=== PATIENT | male | born 1935 | race Caucasian/White ===

== ENCOUNTER 2017-07-18 10:07 | Outpatient (CLI) | payer MEDICARE ==
--- OUTSIDE RECORDS SUMMARY | 2017-07-18 10:09 | XMS | Clinical Summary ---
:1935 Author Organization [facility] Address [address] [place] [address] Phone Care Team Providers Name Role Phone , Primary Care Provider Unavailable Allergies Not on File Current Medications Not on file Active Problems Not on file Social History Tobacco Use Types Packs/Day Years Used Date Never Assessed Sex Assigned at Date Recorded Not on file Last Filed Vital Signs Not on file Plan of Treatment Not on file Results Not on filefrom Last 3 Months
--- NOTE | 2017-07-18 11:00 | ULT ---
RENAL SONOGRMA: HISTORY: Urinary retention. Prostatic hypertrophy. FINDINGS: The right kidney is 10.7 cm in length and the left 11.5 cm. There is o evidence of mass, stone, or hydronephrosis. The 5.4 cm cyst projecting posteriorly from the superior pole left kidney correlate s with abnormality on prior CT scan. Urinary bladder is unremarkable. IMPRESSION: 1. No evidence of urinary tract obstruction. 2. Left renal cyst, stable. POS: [facility]
[2017-07-18 11:20] LABS: Anion Gap 16 mmol/L (10-20); BUN (Urea Nitrogen) 21 mg/dL (8.4-25.7); Calc. Creatinine Clearance 0 mL/min (70-130); Carbon Dioxide 25 mmol/L (23-31); Chloride 102 mmol/L (98-107); Estimated GFR-MDRD 77
[2017-07-18 11:25] LABS: Bilirubin Negative (Negative); Blood, Urine Negative (Negative); Glucose, Urine (Dipstick) Negative (Negative); Ketone, Urine Negative (Negative); Nitrite Negative (Negative); Protein, Urine (Dipstick) Negative (Neg-Trace); Urobilinogen 0.2 mg/dL (0.2-1.0)
[2017-07-18 11:37] LABS: Bacteria/HPF None Seen HPF (None Seen); Hyaline Casts/LPF 0-3 HYALINE CAST LPF (0-3 Hyaline); RBC/HPF None Seen HPF (0-3); Squamous Epithelial 0-3 HPF (0-3); WBC/HPF 0-3 HPF (0-3)
== END 2017-07-18 10:08 | disposition home or self-care (01) ==
LOC: ULT 10:07
PROVIDERS: ATTEND Urology
DX: N40.1 Benign prostatic hyperplasia with lower urinary tract symptoms (principal); R33.9 Retention of urine, unspecified
CPT/HCPCS: 36415; 76770; 80048; 81001; 87086

== ENCOUNTER 2018-01-28 08:41 | Outpatient (CLI) | payer MEDICARE | END 2018-01-28 08:42 | disposition home or self-care (01) | LOC: BICULT 08:41 | PROVIDERS: ATTEND Urology | DX: N40.1 Benign prostatic hyperplasia with lower urinary tract symptoms (principal); R33.9 Retention of urine, unspecified | CPT/HCPCS: 74018; 76856 ==

== ENCOUNTER 2018-02-14 13:41 | Outpatient (CLI) | payer MEDICARE | END 2018-02-14 13:42 | disposition home or self-care (01) | LOC: BICULT 13:41 | PROVIDERS: ATTEND Urology | DX: N40.1 Benign prostatic hyperplasia with lower urinary tract symptoms (principal); R33.9 Retention of urine, unspecified; R97.20 Elevated prostate specific antigen [PSA]; Z80.42 Family history of malignant neoplasm of prostate; N28.1 Cyst of kidney, acquired | CPT/HCPCS: 76770 ==

== ENCOUNTER 2018-08-11 08:09 | Outpatient (CLI) | payer MEDICARE ==
[2018-08-11] MEDS ORDERED: ISOVUE-370 76%-LOCM 1 ML ONE (12:00)
--- NOTE | 2018-08-11 12:07 | CT ---
CT ABDOMEN AND PELVIS WITH AND WITHOUT IV CONTRAST: Date: 08/11/18 HISTORY: 82-year-old male with microhematuria. COMPARISON: 03/08/17. FINDINGS: Chronic changes in the lung bases again seen. No calcified gallstones are identified. The liver, sple en, pancreas, and adrenal glands are normal. No free air, free fluid, or lymphadenopathy seen in the abdomen or pelvis. No calculi are noted in the kidneys, ureters, or the urinary bladder. The 7.0 mm exophytic hyperdense lesion arising from the anterior cortex of the left kidney, likely hemorrhagic cyst, is stable. Cyst s in the left kidney are also stable. No calculi are seen in the kidneys, ureters, or the urinary gold dder. No hydroureteronephrosis noted on either side. No enhancing liver masses are noted. There is no rmal contrast excretion into the ureters and the urinary bladder. The prostate is mildly enlarged. A small hiatal hernia noted. There is sigmoid diverticulosis. Vascular calcifications are present wit hout evidence of aneurysmal dilatation of the abdominal aorta. There are degenerative changes and sco liosis of the spine. Appendix is normal. IMPRESSION: 1. No CT evidence of urinary tract calculi or obstruction. 2. Renal cysts. 3. Small hiatal hernia. 4. Sigmoid diverticulosis. POS: [facility]
== END 2018-08-11 08:10 | disposition home or self-care (01) ==
LOC: BICCT 08:09
PROVIDERS: ATTEND Urology
DX: R31.29 Other microscopic hematuria (principal); N28.1 Cyst of kidney, acquired; K44.9 Diaphragmatic hernia without obstruction or gangrene; K57.30 Diverticulosis of large intestine without perforation or abscess without bleeding
CPT/HCPCS: 74178; 82565

== ENCOUNTER 2018-10-16 08:52 | Inpatient (IN) | payer MEDICARE ==
[2018-10-16 09:31] LABS: #Basophils 0.1 thou/uL (0.0-0.2); #Eosinphils 0.3 thou/uL (0.0-0.7); #Lymphocytes 1.7 thou/uL (1.20-3.40); #Monocytes 1.2 thou/uL (0.11-0.59); #Neutrophils 5.3 thou/uL (1.40-6.50); %Basophils 0.7 % (0.0-1.0); %Eosinophils 3.5 % (0.0-10.0); %Lymphocytes 19.5 % (21.0-51.0); %Monocytes 13.6 % (0.0-10.0); %Neutrophils 62.8 % (42.0-75.0); Hemoglobin 11.5 g/dL (14.0-18.0); Mean Corpuscular HGB CONC 33.1 g/dL (32.0-36.0); Mean Corpuscular Hemoglobin 32.2 pg (27.0-31.0); Mean Corpuscular Volume 97.3 fL (78.0-98.0); Mean Platelet Volume 8.7 fL (7.4-10.4); Platelet Count 240 thou/uL (130-400); RBC Distribution Width 19.6 % (11.5-14.5); Red Blood Cell (RBC) Count 3.56 mill/uL (4.70-6.10); White Blood Cell (WBC) Count 8.5 thou/uL (4.8-10.8)
[2018-10-16 09:55] LABS: ALT (SGPT) 24 U/L (8-55); AST (SGOT) 31 U/L (5-34); Albumin 3.8 g/dL (3.4-4.8); Alkaline Phosphatase 49 U/L (40-150); Anion Gap 14 mmol/L (10-20); BUN (Urea Nitrogen) 18 mg/dL (8.4-25.7); Bilirubin, Total 0.7 mg/dL (0.2-1.2); Calc. Creatinine Clearance 0 mL/min (70-130); Calcium 9.5 mg/dL (7.8-10.44); Carbon Dioxide 25 mmol/L (23-31); Chloride 101 mmol/L (98-107); Estimated GFR-MDRD 83; Globulin 3.7 g/dL (2.4-3.5); Glucose 113 mg/dL (83-110); Potassium 4.2 mmol/L (3.5-5.1); Protein, Total 7.5 g/dL (5.8-8.1); Sodium 136 mmol/L (136-145)
--- NOTE | 2018-10-16 10:01 | RAD ---
TWO VIEW CHEST: COMPARISON: None available. INDICATION: Cough. FINDINGS: There is interstitial prominence of each lung. Cardiac silhouette is borderline in size and there is prominence of the central pulmonary vasculature. Mild patchy density is seen at the left lateral maryam ng base. There is tortuosity of the thoracic aorta. IMPRESSION: 1. Mild interstitial opacities bilaterally. This could relate to edema versus bronchiolitis. Consi jennifer imaging as necessary. 2. Additional details are as described above. POS: [facility]
--- NOTE | 2018-10-16 11:25 | CT ---
CHEST CT WITHOUT CONTRAST: HISTORY: Cough. Congestion. COMPARISON: None. FINDINGS: Limited evaluation of the mediastinal structures due to lack of IV Contrast. There are scattered non specific, nonenlarged mediastinal lymph nodes. NO masses or hematoma. Heart size is within normal l imits. No significant pericardial fluid. There are coronary artery calcifications. Limited evaluation of the upper solid abdominal viscera due to the lack of IV contrast. Mild atrophy of the pancreas. Trachea and central benthic are patent. Dependent atelectatic changes with areas of scarring noted in both lower lobes. No suspicious masses or consolidation. No pleural effusion o r pneumothorax. Trachea and central bronchi are patent. There are no lytic or blastic lesions in the osseous structures. IMPRESSION: Dependent changes in the lung parenchyma, presumed to be due to atelectasis and scarring. POS: [facility]
[2018-10-16] MEDS ORDERED: Azithromycin 500 MG VIAL ONE (12:12)
[2018-10-16] MEDS ORDERED: Sodium Chloride 0.9% 0 ML ONE (12:12)
[2018-10-16] MEDS ORDERED: methylPREDNISolone Sod Succ/PF 125 MG/2 ML VIAL ONE (12:23)
[2018-10-16] MEDS ORDERED: Acetaminophen 325 MG TAB PO PRN (15:48)
[2018-10-16] MEDS ORDERED: Ondansetron ODT 4 MG TAB SL PRN (15:48)
[2018-10-16] MEDS ORDERED: Ondansetron PF 4 MG/2 ML Vial IVP PRN (15:48)
[2018-10-16 15:57] VITALS: BMI 40.8
[2018-10-16] MEDS: guaiFENesin ER 600 MG TAB PO SCH (20:28)
[2018-10-16] MEDS: predniSONE 20 MG TAB PO SCH (20:28)
[2018-10-16] MEDS ORDERED: Simvastatin 20 MG TAB PO SCH (21:00)
[2018-10-16] MEDS ORDERED: Prevnar 13-Val Conj/PF 0.5 ML SYRINGE IM ONE (21:00)
[2018-10-16] MEDS: Albuterol Sulfate 1.25 MG/3 ML NEB NEB SCH (22:12)
--- NOTE | 2018-10-16 22:13 | HP ---
PRIMARY CARE PHYSICIAN: Colby Leiva MD CHIEF COMPLAINT: Cough and shortness of breath. HISTORY OF PRESENT ILLNESS: This is an 83-year-old gentleman, patient of Dr. Colby Leiva, who is a resident of [facility], presents to the emergency department for worsening cough and shortness of breath. The patient has a history of dementia and memory loss. He states he has had a cough for the past several weeks, which has worsened over the past few days. He presented to the emergency department. He was found to have a severe cough with episodes of hypoxemia down to 87% to 88%, worse with walking around. He denied any fevers or chills; has had some congestion and drainage. He has not had any improvement with [id number] medicines. He denies any loss of consciousness, denies chest pain, and does not use oxygen at home. PAST MEDICAL HISTORY: Hypertension, dementia, benign prostatic hypertrophy, hypertension, gout. MEDICATIONS: Include, 1. Hydrochlorothiazide 12.5 mg daily. 2. Aspirin 81 mg daily. 3. Finasteride 5 mg daily. 4. Tamsulosin 0.8 mg daily. 5. Icaps daily. 6. Fish oil 1200 mg daily. 7. Vitamin D 5000 units daily. 8. Vitamin B12 1000 mcg daily. 9. Namenda 10 mg b.i.d. 10. Paroxetine 20 mg 2 tabs daily. 11. Allopurinol 300 mg daily. 12. Vitamin B6, 100 mg daily. 13. Colace p.r.n. 14. Diazepam 2 mg p.r.n. anxiety. 15. Simvastatin 20 mg daily. 16. Lisinopril 20 mg daily. PAST SURGICAL HISTORY: Hemorrhoidectomy in 1950s, left Achilles tendon repair in 1966, cystoscopy in 2016, transrectal ultrasound in 2017, a repeat cystoscopy in August 2018. FAMILY HISTORY: Mother and father . SOCIAL HISTORY: Remote smoker, cigar several years ago. No drugs. No alcohol. He is retired. Lives alone at [facility] at this time. ALLERGIES: NO KNOWN DRUG ALLERGIES. REVIEW OF SYSTEMS: As per the history of present illness. CONSTITUTIONAL: He denies any recent fevers, chills, or recent illness. HEENT: Denies headache or visual or hearing changes. Has had some congestion and allergy symptoms. CARDIAC: Denies chest pain, shortness of breath, or palpitations. PULMONARY: Positive cough. Positive shortness of breath. Positive hypoxia. No hemoptysis. GI: No nausea, vomiting, abdominal pain, melena, or hematochezia. : History of BPH with evaluations with Dr. Flores recently. NEUROLOGIC: Positive Alzheimer's dementia. No falls. No syncope. PHYSICAL EXAMINATION: VITAL SIGNS: In the emergency department; temperature 99.3 to 99.7, pulse is 74, respirations 20, blood pressure 133/78, and pulse ox is 92% on room air, but would de-sat to 88% with ambulation. HEENT: Mucosa is moist. NECK: Supple. HEART: Regular rate and rhythm. LUNGS: With expiratory rhonchi. No wheeze. No rales. ABDOMEN: Obese, soft, nontender, and nondistended. No hepatosplenomegaly. EXTREMITIES: Trace edema bilaterally. NEUROLOGIC: No weakness. Strength is 5/5 in upper and lower extremities. Sensation is intact bilaterally. LABORATORY DATA: White blood cell count 8500, hemoglobin and hematocrit are 11.5 and 34.6, and platelets are 240. Sodium 136, potassium 4.2, chloride 101, CO2 of 25, BUN and creatinine are 18 and 0.88. Serum glucose of 133, lactic acid of 1.3. Liver enzymes are normal. Troponin I 0.01. BNP of 30.9. Chest x-ray revealed no active disease. Mild interstitial opacities bilaterally consistent with bronchiolitis. Chest CT revealed dependent changes in the lung parenchyma either due to atelectasis or scarring. ASSESSMENT AND PLAN: 1. This is an 83-year-old assisted living resident with Alzheimer's dementia, now with persistent cough and episode of hypoxemia in the emergency department consistent with acute bronchiolitis and bronchitis. I agree with admission. He is a poor historian. We will continue antibiotics and steroid therapy, and neb treatments as needed. Hopefully home soon. 2. Hypertension. We will continue his medications. 3. Alzheimer's dementia with behavioral disturbance. We will continue his oral medications as well. 4. Gastrointestinal protection with proton pump inhibitor. 5. We will start deep venous thrombosis prophylaxis with Lovenox due to his poor ambulation as well. Job ID: [id number]
[2018-10-17] MEDS: Albuterol Sulfate 1.25 MG/3 ML NEB NEB SCH (06:15)
--- NOTE | 2018-10-17 08:10 | RAD ---
CHEST 1 VIEW: Date: 10/17/18 HISTORY: Hypoxia. COMPARISON: 10/16/18. CORRELATION: Chest CT dated 10/16/18. FINDINGS: There is an enlarged cardiaca silhouette. Pulmonary vessels are prominent. Costophrenic angles are cl ear. No masses or consolidation. Chronic changes in the lung bases are noted. No pneumothorax or osse ous abnormalities. IMPRESSION: Pulmonary vascular prominence. POS: [facility]
[2018-10-17] MEDS ORDERED: Tamsulosin HCl 0.4 MG CAP PO SCH (09:00)
[2018-10-17] MEDS ORDERED: PARoxetine 20 MG TAB PO SCH (09:00)
[2018-10-17] MEDS ORDERED: Lisinopril 20 MG TAB PO SCH (09:00)
[2018-10-17] MEDS ORDERED: Finasteride 5 MG TAB PO SCH (09:00)
[2018-10-17] MEDS ORDERED: pyridOXINE 50 MG (B6) TAB PO SCH (09:00)
[2018-10-17] MEDS ORDERED: Allopurinol 300 MG TAB PO SCH (09:00)
[2018-10-17] MEDS ORDERED: Azithromycin 250 MG TAB PO SCH (09:00)
[2018-10-17] MEDS ORDERED: Cyanocobalamin (Vitamin B-12) 1,000 MCG TAB PO SCH (09:00)
[2018-10-17] MEDS: guaiFENesin ER 600 MG TAB PO SCH (09:40)
[2018-10-17] MEDS: predniSONE 20 MG TAB PO SCH (09:41)
--- NOTE | 2018-10-17 14:33 | PRG ---
DATE OF SERVICE: 10/17/2018 PROGRESS NOTE/DISCHARGE SUMMARY The patient was in 23-hour observation. ADMITTING PHYSICIAN: Dr. Colby Leiva. DISCHARGE DIAGNOSES: 1. Bronchitis. 2. Hypoxia. HOSPITAL SUMMARY: The patient is an 83-year-old male, resident of [facility], who was admitted to the ER due to cough, congestion, with decreased oxygenation saturation of about 87%. A chest x-ray was taken, which revealed no evidence of acute disease. He was treated with nebulizations, p.o. steroids as well as p.o. Zithromax. He has been doing well since then. PHYSICAL EXAMINATION: VITAL SIGNS: Room air O2 saturation 95%, blood pressure 120/77, and temperature 97.5. LUNGS: Clear. HEART: Reveals no murmur. IMPRESSION: Bronchitis. PLAN: The patient can be discharged home as noted. He was admitted yesterday and placed on p.o. medications as well as nebulizations. His lungs are clear. He is not having good O2 saturations. He will be discharged home on Zithromax 250 mg p.o. daily as well as Medrol Dosepak to be taken as directed. Continue his home medications. Job ID: [id number]
[2018-10-17 15:24] VITALS: BP 129/79; TEMP 97.7
== END 2018-10-17 14:16 | disposition home or self-care (01) | DRG 202 ==
LOC: ERS 08:52 → ERHOLD 12:20 → T4-B 15:12
PROVIDERS: ADMIT Family Medicine; ATTEND Family Medicine
DX: J20.9 Acute bronchitis, unspecified (principal); F02.81 Dementia in other diseases classified elsewhere, unspecified severity, with behavioral disturbance; R09.02 Hypoxemia; I10 Essential (primary) hypertension; N40.0 Benign prostatic hyperplasia without lower urinary tract symptoms; M10.9 Gout, unspecified; G30.9 Alzheimer's disease, unspecified; Z79.82 Long term (current) use of aspirin; Z79.899 Other long term (current) drug therapy; Z98.890 Other specified postprocedural states; Z87.891 Personal history of nicotine dependence
CPT/HCPCS: 36415; 71045; 71046; 71250; 80053; 83605; 83880; 84484; 85025; 87040; 87804; 90471; 90662; 90670; 93005; 94640; 96365; 96375; G0008; G0009; J0456; J2930; J7050; J7506

== ENCOUNTER 2018-11-07 14:40 | Outpatient (CLI) | payer MEDICARE ==
--- NOTE | 2018-11-07 15:59 | ULT ---
RENAL ULTRASOUND: History: Renal cyst, urinary retention. FINDINGS: Real-time imaging of the right and left kidneys were performed. The right kidney measures 10.8 and th e left kidney 12.4 cm in size. No evidence of obstruction of either kidney. There is a exophytic cyst involving the left kidney. It measures 5.9 cm. The pre-void volume is 207 cc. The patient was unable to void after attempting for 10-15 minutes. IMPRESSION: 1. 5.9 cm upper pole right renal cyst appears stable as compared to previous CT study. 2. Patient was unable to void for this exam. Pre-void volume was 207 cc. POS: [facility]
== END 2018-11-07 14:41 | disposition home or self-care (01) ==
LOC: BICULT 14:40
PROVIDERS: ATTEND Urology
DX: N28.1 Cyst of kidney, acquired (principal); R33.9 Retention of urine, unspecified; N40.1 Benign prostatic hyperplasia with lower urinary tract symptoms; Z87.448 Personal history of other diseases of urinary system
CPT/HCPCS: 76770; 80048; 81003; 81015; 87086; 88121

== ENCOUNTER 2019-08-31 07:29 | Outpatient (CLI) | payer MEDICARE ==
[2019-08-31] MEDS ORDERED: Iopamidol-370 76% 500 ML 1 ML ONE (11:01)
--- NOTE | 2019-08-31 11:18 | CT ---
CT ABDOMEN AND PELVIS WITH AND WITHOUT IV CONTRAST: Date: 08/31/19 HISTORY: Microhematuria. COMPARISON: 08/11/18. FINDINGS: No calculi are seen in the kidneys, ureters, or the urinary bladder. The 7 mm exophytic hyperdense le heidi arising from the anterior cortex of the left kidney, likely a hemorrhagic cyst, is stable. Cysts in the left kidney are also stable. No hydroureteronephrosis is noted on either side. There is miriam l contrast excretion into the ureters and urinary bladder. The prostate is mildly enlarged. Chronic changes in the lung bases are again seen. No calcified gallstones are noted. The liver, splee n, pancreas, and adrenal glands are normal. No free air, free fluid, or lymphadenopathy seen in the a bdomen or pelvis. A small hiatal hernia is again noted. There is colonic diverticulosis without diverticulitis. There a re vascular calcifications without evidence of aneurysmal dilatation of the abdominal aorta. Degenera tive changes and scoliosis of the spine are again seen. A normal appendix is noted. IMPRESSION: 1. Stable exam. 2. No CT evidence of urinary tract calculi or obstruction. 3. Renal cysts. 4. Small hiatal hernia. 5. Colonic diverticulosis. POS: [facility]
== END 2019-08-31 07:30 | disposition home or self-care (01) ==
LOC: BICCT 07:29
PROVIDERS: ATTEND Urology
DX: R31.29 Other microscopic hematuria (principal); N28.1 Cyst of kidney, acquired; K57.30 Diverticulosis of large intestine without perforation or abscess without bleeding; K44.9 Diaphragmatic hernia without obstruction or gangrene
CPT/HCPCS: 74178; Q9967

== ENCOUNTER 2019-10-06 11:13 | Inpatient (IN) | payer MEDICARE ==
--- NOTE | 2019-10-06 11:57 | RAD ---
Chest one view HISTORY: Dyspnea. COMPARISON: 10/17/2018. FINDINGS: Cardiac silhouette is magnified and enlarged. Pulmonary vasculature slightly engorged. Medi astinum is midline with widespread reticulonodular interstitial prominence. No lobar consolidation or evidence of pneumothorax. ekg monitor tech leads overlie the chest. IMPRESSION: Radiographic findings of CHF.
[2019-10-06 12:27] LABS: Anisocytosis MODERATE=16-30 cells (100X) (0-5/hpf); Band 18 % (5-11); Eosinophils 1 % (0-10); Hemoglobin 9.7 g/dL (14.0-18.0); Lymphocytes 15 % (21-51); MDiff Complete? YES; Mean Corpuscular Volume 97.1 fL (78.0-98.0); Mean Platelet Volume 8.3 fL (7.4-10.4); Metamyelocyte 2 % (0-0); Monocytes 9 % (0-10); Neutrophil 54 % (42-75); Platelet Count 245 thou/uL (130-400); Platelet Morphology Comment Appears Adequate; Poikilocytosis SLIGHT = 6-15 cells (100X) (0-5/hpf); RBC Distribution Width 20.5 % (11.5-14.5); Red Blood Cell (RBC) Count 3.02 mill/uL (4.70-6.10); White Blood Cell (WBC) Count 8.3 thou/uL (4.8-10.8)
[2019-10-06 12:32] LABS: ALT (SGPT) 61 U/L (8-55); AST (SGOT) 39 U/L (5-34); Albumin 3.7 g/dL (3.4-4.8); Alkaline Phosphatase 50 U/L (40-110); Anion Gap 8 mmol/L (10-20); BUN (Urea Nitrogen) 17 mg/dL (8.4-25.7); Bilirubin, Total 0.5 mg/dL (0.2-1.2); CK (CPK) 155 U/L (30-200); Calc. Creatinine Clearance 0 mL/min (70-130); Calcium 8.8 mg/dL (7.8-10.44); Carbon Dioxide 32 mmol/L (23-31); Chloride 102 mmol/L (98-107); Estimated GFR-MDRD 74; Globulin 2.9 g/dL (2.4-3.5); Glucose 115 mg/dL (83-110); Potassium 4.1 mmol/L (3.5-5.1); Protein, Total 6.6 g/dL (5.8-8.1); Sodium 138 mmol/L (136-145)
[2019-10-06] MEDS ORDERED: Furosemide 100 MG/10 ML VIAL ONE (12:43)
[2019-10-06] MEDS ORDERED: Acetaminophen 650 MG Suppository PR PRN (13:33)
[2019-10-06] MEDS ORDERED: Acetaminophen 325 MG TAB PO PRN (13:33)
--- NOTE | 2019-10-06 13:41 | PDOC.HHP ---
Hospitalist HPI - History of Present Illness Difficulty breathing at night History of Present Illness: Poor historian, known history of dementia. Mr. Kelley states he was brought here because of difficulty breathing at night. He states he has had worsening short of breath for some time now but is unable to quantify how long it has been worsening. He states he has been generally deconditioning since he moved into assisted living in [place]. He is a poor historian and states he doesnt know what medical problems he has. He does take medications administered by the assisted living staff but does not know what medicines or what they are for. He does not recall being on any water tablets or having issues with heart failure or edema before. Reports a history of smoking cigars in the distant past but denies any history of lung problems including asthma. Has never been on inhalers. He denies requiring oxygen in the past. Denies using nebuliser treatments. States he does not feel any better since given treatment in the ED and continues to feel "a rattling in my chest and wheezy". Has had a productive cough for unknown length of time and states he does not pay attention to what it looks like. Denies any fevers. Has not had any chest pain except occasional discomfort when he coughs. States he does not know if he is short of breath with exertion because he mainly stays in bed or sits in his chair since he moved into assisted living. Does not know if his legs are swollen more than normal or if the leg swelling is new. He has not noted any calf pain or tenderness. ED Course: In the ED he was given 80 mg of IV lasix. Given clinical evidence of fluid overload with bilateral lower extremity edema and crackles on lung auscultation. Labs done initially showed an DEION, following lasix his renal function notably improved. CXR done showed findings consistent with CHF exacerbation. Cardiomegaly with slight engorgement of pulmonary vasculature. Initial Trop negative. BNP 152. Hospitalist ROS - Review of Systems Constitutional: reports: weakness (states he has not been very mobile since moving into assisted living.). denies: fever, chills, sweats, malaise, other Eyes: denies: pain, vision change, conjunctivae inflammation, eyelid inflammation, redness, other ENT: denies: ear pain, ear discharge, nose pain, nose discharge, nose congestion , mouth pain, mouth swelling, throat pain, throat swelling, other Respiratory: reports: cough, shortness of breath, sputum (color unknown). denies: dry, hemoptysis, SOB with excertion, pleuritic pain, wheezing, other Cardiovascular: reports: orthopnea. denies: chest pain, palpitations, paroxysmal noc. dyspnea, edema, light headedness, other Gastrointestinal: denies: nausea, vomiting, abdominal pain, diarrhea, constipation, melena, hematochezia, other Genitourinary: reports: frequency. 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) - Past Surgical History Past Surgical History: reports: Cystoscopy Other Surgical History: Hemmorhoidectomy, achiles tendon repair - Family History Family History: reports: no pertinent history - Social History Smoking Status: Former smoker Alcohol: reports: None Drugs: reports: none Living Situation: Other (Assisted living) - Exam General Appearance: NAD General - other findings: Somewhat short of breath, no acute distress ENT: dry oral mucosa Neck: supple, no lymphadenopathy Heart: normal peripheral pulses Heart - other findings: distant heart sounds Respiratory: rales (at bases) Gastrointestinal: soft, non-tender, no guarding, no rigidity, distended Extremities: 2+ LE edema Skin: no lesions, no rashes Neurological: cranial nerve grossly intact Musculoskeletal: generalized weakness Psychiatric: A&O x 3 Hospitalist Results - Labs Result Diagrams: 10/06/19 11:59 10/06/19 11:58 Lab results: WBC 8.3 thou/uL (4.8-10.8) 10/06/19 11:59 Hgb 9.7 g/dL (14.0-18.0) L 10/06/19 11:59 Hct 29.3 % (42.0-52.0) L 10/06/19 11:59 MCV 97.1 fL (78.0-98.0) 10/06/19 11:59 Plt Count 245 thou/uL (130-400) 10/06/19 11:59 Band Neuts % (Manual) 18 % (5-11) H 10/06/19 11:59 Sodium 138 mmol/L (136-145) 10/06/19 11:58 Potassium 4.1 mmol/L (3.5-5.1) 10/06/19 11:58 Chloride 102 mmol/L (98-107) 10/06/19 11:58 Carbon Dioxide 32 mmol/L (23-31) H 10/06/19 11:58 BUN 17 mg/dL (8.4-25.7) 10/06/19 11:58 Creatinine 0.97 mg/dL (0.7-1.3) 10/06/19 11:58 Glucose 115 mg/dL (83-110) H 10/06/19 11:58 Calcium 8.8 mg/dL (7.8-10.44) 10/06/19 11:58 Total Bilirubin 0.5 mg/dL (0.2-1.2) 10/06/19 11:58 AST 39 U/L (5-34) H 10/06/19 11:58 ALT 61 U/L (8-55) H 10/06/19 11:58 Alkaline Phosphatase 50 U/L (40-110) 10/06/19 11:58 Creatine Kinase 155 U/L (30-200) 10/06/19 11:58 Troponin I 0.021 ng/mL (< 0.028) 10/06/19 11:57 B-Natriuretic Peptide 152.1 pg/mL (0-100) H 10/06/19 11:59 Serum Total Protein 6.6 g/dL (5.8-8.1) 10/06/19 11:58 Albumin 3.7 g/dL (3.4-4.8) 10/06/19 11:58 - EKG Interpretation EKG: Sinus tachycardia, Complete RBBB, TWI leads V1, V2 and V3 - Radiology Interpretation Chest x-ray Status: report reviewed by me Hospitalist H&P A/P - Problem (1) CHF exacerbation Code(s): I50.9 - HEART FAILURE, UNSPECIFIED Status: Acute (2) DEION (acute kidney injury) Code(s): N17.9 - ACUTE KIDNEY FAILURE, UNSPECIFIED Status: Acute (3) Generalized weakness Code(s): R53.1 - WEAKNESS Status: Acute (4) Hypertension Code(s): I10 - ESSENTIAL (PRIMARY) HYPERTENSION Status: Chronic (5) Hypothyroid Code(s): E03.9 - HYPOTHYROIDISM, UNSPECIFIED Status: Chronic (6) Dementia Code(s): F03.90 - UNSPECIFIED DEMENTIA WITHOUT BEHAVIORAL DISTURBANCE Status: Chronic (7) Diabetes mellitus Code(s): E11.9 - TYPE 2 DIABETES MELLITUS WITHOUT COMPLICATIONS Status: Chronic - Plan Plan: Continue diuresis, Lasix 40 mg IV daily Echo. Cardiac rehap inpatient/outpatient Trend troponins. TSH. Monitor renal function. Monitor and continue to replace electrolytes. Continuous cardiac monitoring. Continue Oxygen by NC (desats to 80% off oxygen), O2 sat monitoring. Given the fact he has been sedentary, check d-dimer and venous doppler. Monitor glucose and BP. Resume home medications once verified. Initiated insulin sliding scale. PT/OT consult. Would benefit from rehab screening. CODE STATUS: FULL MPOA: His sister Annette Dan. ADDENDUM: Patient seen by Dr. Claire who advised Lasix 40 mg IV BID [place] SOB most likely due to CHF exacerbation.
--- NOTE | 2019-10-06 14:49 | ULT ---
EXAM: Bilateral lower extremity venous duplex: Deep veins evaluated with color Doppler, spectral analysis, and compression. INDICATIONS: CHF FINDINGS: Deep veins interrogated include common femoral vein, femoral vein, popliteal vein, and post erior tibial vein. These veins show normal compression and blood flow. No evidence of DVT. IMPRESSION: Negative Bilateral venous duplex exam.
[2019-10-06 15:54] LABS: Actual Bicarbonate (HCO3a) 28.7 mEq/L (22-28); Analyzer IN Cardio ER; Base Excess (BEa) 4.1 mEq/L (-2.0 to +3.0); CO2 Tension 43.3 mmHg (35.0-45.0); Calcium, Ionized 1.15 mmol/L (1.12-1.30); Carboxyhemoglobin (COHb) 0.6 gm% (0.0-3.0); Hemoglobin (Hb) 10.9 g/dL (14.0-18.0); O2 Tension (PaO2) 72.2 mmHg (> 60.0); Potassium - ABG Lab 3.71 mmol/L (3.70-5.30); pH, Arterial 7.44 (7.35-7.45)
[2019-10-06 15:55] LABS: Puncture Site RRA
[2019-10-06 15:56] LABS: ALV-art Gradient 73.315 (0-20)
[2019-10-06 16:37] VITALS: BMI 37.5
[2019-10-06] MEDS ORDERED: HumaLOG 300 UNITS/3 ML VIAL SC PRN ×2 (16:46)
[2019-10-06] MEDS ORDERED: Dextrose 5% in Water 1,000 ML IV PRN (16:46)
[2019-10-06] MEDS ORDERED: Dextrose 50% Abboject 50 ML SYRINGE SLOW IVP PRN (16:46)
[2019-10-06] MEDS: Famotidine/PF 20 mg/2ml Vial SLOW IVP SCH (21:58)
[2019-10-07 04:54] LABS: #Eosinphils 0.1 thou/uL (0.0-0.7); #Lymphocytes 1.5 thou/uL (1.20-3.40); #Monocytes 0.8 thou/uL (0.11-0.59); %Basophils 0.6 % (0.0-1.0); %Eosinophils 1.3 % (0.0-10.0); %Lymphocytes 20.3 % (21.0-51.0); %Monocytes 10.9 % (0.0-10.0); Hemoglobin 9.3 g/dL (14.0-18.0); Mean Corpuscular Volume 96.9 fL (78.0-98.0); Mean Platelet Volume 8.4 fL (7.4-10.4); Platelet Count 260 thou/uL (130-400); RBC Distribution Width 20.6 % (11.5-14.5); White Blood Cell (WBC) Count 7.4 thou/uL (4.8-10.8)
[2019-10-07 05:11] LABS: Anion Gap 10 mmol/L (10-20); BUN (Urea Nitrogen) 17 mg/dL (8.4-25.7); Calc. Creatinine Clearance 98 mL/min (70-130); Carbon Dioxide 33 mmol/L (23-31); Chloride 102 mmol/L (98-107); Estimated GFR-MDRD 72; Glucose 106 mg/dL (83-110); Potassium 3.6 mmol/L (3.5-5.1); Sodium 141 mmol/L (136-145)
[2019-10-07] MEDS: Furosemide 40 MG/4 ML VIAL SLOW IVP SCH ×2 (06:46→14:12)
[2019-10-07] MEDS ORDERED: Furosemide 40 MG/4 ML VIAL SLOW IVP SCH (09:00)
--- NOTE | 2019-10-07 10:12 | RAD ---
PORTABLE CHEST: Date: 10/07/19 HISTORY: Shortness of breath. COMPARISON: 10/06/19 exam. FINDINGS: Heart size is enlarged. Pulmonary vessels are engorged but overall improved as compared to the prior exam. Chronic lung changes are also seen. IMPRESSION: Cardiomegaly with improvement to the pulmonary vascular engorgement. POS: [facility]
[2019-10-07] MEDS: Famotidine/PF 20 mg/2ml Vial SLOW IVP SCH ×2 (10:40→21:36)
--- NOTE | 2019-10-07 15:54 | PDOC.HOSPP ---
- Subjective Encounter Date: 10/07/19 Encounter Time: 15:53 Subjective: Patient is still short of breath but feels better. Per , the patient is coughing as much, but he was coughing all night yesterday. He has no fevers or chills Patient has a PET scan coming up this week. - Objective Vital Signs & Weight: Vital Signs (12 hours) Temp Pulse Pulse Pulse Resp BP BP 10/07/19 14:03 70 16 10/07/19 11:20 98.5 F 68 20 10/07/19 11:07 68 70 112/56 L 130/63 10/07/19 08:02 98.4 F 68 20 10/07/19 07:32 90 16 BP Pulse Ox Pulse Ox Pulse Ox Pulse Ox 10/07/19 14:03 10/07/19 11:20 113/55 L 94 L 10/07/19 11:07 93 L 92 L 90 L 10/07/19 08:02 129/57 L 94 L 10/07/19 07:32 Weight Weight 261 lb 12.8 oz I&O: 10/06/19 10/07/19 10/08/19 06:59 06:59 06:59 Intake Total 680 Output Total 1800 Balance -1120 Result Diagrams: 10/07/19 04:29 10/07/19 04:29 Additional Labs: Accuchecks 10/06/19 17:22 POC Glucose 107 Hospitalist ROS - Review of Systems Constitutional: denies: fever, chills - Medication Medications: Active Medications Generic Name Dose Route Start Last Admin Trade Name Freq PRN Reason Stop Dose Admin Albuterol/Ipratropium 3 ml 10/06/19 14:30 10/07/19 14:03 Duoneb NEB 3 ml [id number] KATHIE Administration Famotidine 20 mg 10/06/19 21:00 10/07/19 10:40 Pepcid SLOW IVP Not Given Q12HR KATHIE Furosemide 40 mg 10/07/19 09:00 10/07/19 07:57 Lasix SLOW IVP Not Given DAILY KATHIE Furosemide 40 mg 10/07/19 06:00 10/07/19 14:12 Lasix SLOW IVP 40 mg 0600,1400 KATHIE Administration - Exam General Appearance: NAD, awake alert Eye: PERRL, anicteric sclera ENT: normocephalic atraumatic, no oropharyngeal lesions Neck: supple, symmetric, no JVD, no thyromegaly Heart: RRR, no murmur, no gallops, no rubs Respiratory - other findings: diffuse wheezing and rhonchi Gastrointestinal: soft, non-tender, non-distended, normal bowel sounds Extremities: no cyanosis, no clubbing, 2+ LE edema Extremities - other findings: pitting edema Skin: normal turgor, no lesions Neurological: cranial nerve grossly intact, normal sensation to touch, no focal deficits, no new deficit Hosp A/P - Plan This is an 84 year old male with history of penile cancer who presented with shortness of breath, cough, found to be in CHF exacerbation Acute CHF exacerbation - patient is on 40 mg IV BId, repeat chest Xray shows significant improvement in pulmonary edema - will check an ECHO , two more troponin - add mucinex - continue breathing treatments Chronic respiratory failure - on 2L of oxygen at baseline Penile cancer - patient has an appointment at [facility] this week. He is due for a PET scan this week Anemia - Hb 9.6, will check iron panel tomorrow Alzheimers disease - outpatient follow up Dispo: pending improvement in pulm edema/wheezing DVT prophylaxiS: heparin SC TID Code status: full code
[2019-10-07] MEDS: Carvedilol 3.125 MG TAB PO SCH (16:51)
[2019-10-07 16:56] LABS: Troponin I 0.015 ng/mL (< 0.028)
[2019-10-07] MEDS ORDERED: Potassium Chloride 20 MEQ TAB PO SCH (20:00)
[2019-10-07] MEDS: Heparin 5,000 UNITS/ML VIAL SC SCH (21:35)
[2019-10-07] MEDS: guaiFENesin/DM ER PO SCH (21:35)
[2019-10-07] MEDS: Simvastatin 20 MG TAB PO SCH (21:36)
[2019-10-07 22:36] LABS: Troponin I Less than 0.010 ng/mL (< 0.028)
[2019-10-08 04:51] LABS: Iron Binding Capacity, Total 266 mcg/dL (261-462); Transferrin, Serum 213 mg/dL (163-344)
[2019-10-08 04:52] LABS: Iron 48 ug/dL (65-175)
[2019-10-08] MEDS: Furosemide 40 MG/4 ML VIAL SLOW IVP SCH ×2 (06:22→14:50)
--- NOTE | 2019-10-08 08:05 | RAD ---
PORTABLE CHEST: DATE: 10/08/2019. PROVIDED CLINICAL HISTORY: Pulmonary edema. FINDINGS: Comparison 10/07/2019. Cardiac and mediastinal silhouette is unchanged in appearance. Prominence of the pulmonary vasculature and pulmonary interstitium persist. Interval development of bilateral per ihilar airspace disease. No evidence of a large pleural effusion or evidence for pneumothorax. IMPRESSION: Development of bilateral perihilar airspace disease, which may reflect infection or edema. Followup is recommended. POS: [facility]
[2019-10-08] MEDS: Famotidine/PF 20 mg/2ml Vial SLOW IVP SCH ×2 (08:18→21:18)
[2019-10-08] MEDS: Carvedilol 3.125 MG TAB PO SCH ×2 (08:18→17:02)
[2019-10-08] MEDS: guaiFENesin/DM ER PO SCH ×2 (08:18→21:18)
[2019-10-08] MEDS: Aspirin 81 mg Enteric Coated Tablet PO SCH (08:18)
[2019-10-08] MEDS: Heparin 5,000 UNITS/ML VIAL SC SCH ×3 (08:18→21:17)
--- NOTE | 2019-10-08 10:57 | PDOC.HOSPP ---
- Subjective Encounter Date: 10/08/19 Encounter Time: 14:00 Subjective: Patient with some SOB, mildly improved. No other complaints. - Objective Vital Signs & Weight: Vital Signs (12 hours) Temp Pulse Resp BP Pulse Ox 10/08/19 10:33 78 16 98 10/08/19 09:20 93 L 10/08/19 08:00 97.9 F 61 24 H 153/70 H 93 L 10/08/19 07:52 75 18 95 10/08/19 03:36 97.6 F 62 18 130/68 97 10/08/19 00:00 96 Weight Weight 259 lb 8 oz I&O: 10/07/19 10/08/19 10/09/19 06:59 06:59 06:59 Intake Total 680 990 Output Total 1800 2100 Balance -1120 -1110 Result Diagrams: 10/07/19 04:29 10/07/19 04:29 Hospitalist ROS - Review of Systems Constitutional: denies: fever, chills Respiratory: reports: shortness of breath. denies: cough, dry Cardiovascular: denies: chest pain, palpitations Gastrointestinal: denies: nausea, vomiting, abdominal pain - Medication Medications: Active Medications Generic Name Dose Route Start Last Admin Trade Name Freq PRN Reason Stop Dose Admin Albuterol/Ipratropium 3 ml 10/06/19 14:30 10/08/19 10:33 Duoneb NEB 3 ml [id number] KATHIE Administration Aspirin 81 mg 10/08/19 09:00 10/08/19 08:18 Ecotrin PO 81 mg DAILY KATHIE Administration Carvedilol 3.125 mg 10/07/19 17:00 10/08/19 08:18 Coreg PO 3.125 mg BID-WM KATHIE Administration Famotidine 20 mg 10/06/19 21:00 10/08/19 08:18 Pepcid SLOW IVP 20 mg Q12HR KATHIE Administration Furosemide 40 mg 10/07/19 06:00 10/08/19 06:22 Lasix SLOW IVP 40 mg 0600,1400 KATHIE Administration Guaifenesin/Dextromethorphan 1 tab 10/07/19 21:00 10/08/19 08:18 Mucinex Dm PO 1 tab Q12HR KATHIE Administration Heparin Sodium (Porcine) 5,000 units 10/07/19 21:00 10/08/19 08:18 Heparin SC 5,000 units TID KATHIE Administration Simvastatin 20 mg 10/07/19 21:00 10/07/19 21:36 Zocor PO 20 mg HS KATHIE Administration - Exam General Appearance: NAD Eye: anicteric sclera ENT: moist mucosa Heart: RRR, no murmur, no gallops, no rubs Respiratory: CTAB, no wheezes, no rales, no ronchi Gastrointestinal: soft, non-tender, non-distended, normal bowel sounds, no palpable masses Extremities: 1+ LE edema Psychiatric: normal affect, normal behavior, oriented to person, oriented to place Hosp A/P - Plan This is an 84 year old male with history of penile cancer who presented with shortness of breath, cough, found to be in CHF exacerbation Acute CHF exacerbation - patient is on Lasix 40 mg IV BId, repeat chest Xray shows significant improvement in pulmonary edema - will check an ECHO, two more troponins, cardiology consulted - on mucinex - continue breathing treatments Chronic respiratory failure - on 2L of oxygen at baseline Penile cancer - patient has an appointment at [facility] this week. He is due for a PET scan this week Anemia - Hb 9.6, iron panel consistent with mixed iron deficiency and anemia of chronic disease Alzheimers disease - outpatient follow up Dispo: pending improvement in pulm edema/wheezing DVT prophylaxiS: heparin SC TID Code status: full code
--- NOTE | 2019-10-08 11:30 | CON ---
DATE OF CONSULTATION: HISTORY OF PRESENT ILLNESS: The patient is an 82-year-old gentleman with severe dementia, who presented with dyspnea. The patient is unable to give any coherent history. The patient is not aware that he is in the hospital. The patient apparently presented to the emergency room with increasing dyspnea. He was admitted and started on diuretics. PAST MEDICAL HISTORY: 1. Dementia. 2. Hypertension. 3. BPH. PAST SURGICAL HISTORY: Hemorrhoidectomy and cystoscopy. SOCIAL HISTORY: He lives in [facility]. ALLERGIES: NO KNOWN DRUG ALLERGIES. REVIEW OF SYSTEMS: Not obtainable. PHYSICAL EXAMINATION: GENERAL: Confused gentleman, alert and oriented x1. VITAL SIGNS: Blood pressure was 113/55. NECK: Full. LUNGS: Few crackles in both bases. HEART: Regular rate and rhythm. Normal S1 and S2 with a 1/6 systolic murmur. ABDOMEN: Nondistended. EXTREMITIES: Showed moderate edema. LABORATORY RESULTS: Sodium 141, potassium 3.6, chloride 102, bicarbonate 33, BUN 17, creatinine 1.0, glucose 106. White blood cell count 7.4, hemoglobin 9.3, hematocrit 28.1, and his platelets are 260. EKG revealed normal sinus rhythm, low-voltage QRS, nonspecific ST abnormality. Chest x-ray revealed cardiomegaly with mild pulmonary vascular congestion. IMPRESSION: 1. Congestive heart failure, possibly due to diastolic dysfunction. 2. Hypertension. 3. Severe dementia. 4. Obesity. This gentleman presents with congestive heart failure. He is being treated with diuretics. We will check the echocardiogram. We will follow this patient with you through his hospitalization. Job ID: [id number] MTDD
[2019-10-08] MEDS: Simvastatin 20 MG TAB PO SCH (21:18)
[2019-10-09 05:24] LABS: #Basophils 0.1 thou/uL (0.0-0.2); #Eosinphils 0.2 thou/uL (0.0-0.7); #Lymphocytes 1.7 thou/uL (1.20-3.40); #Monocytes 0.9 thou/uL (0.11-0.59); #Neutrophils 4.2 thou/uL (1.40-6.50); %Basophils 0.7 % (0.0-1.0); %Eosinophils 2.9 % (0.0-10.0); %Lymphocytes 23.8 % (21.0-51.0); %Neutrophils 59.6 % (42.0-75.0); Hemoglobin 9.7 g/dL (14.0-18.0); Mean Corpuscular HGB CONC 33.2 g/dL (32.0-36.0); Mean Corpuscular Hemoglobin 31.8 pg (27.0-31.0); Mean Platelet Volume 8.6 fL (7.4-10.4); Platelet Count 291 thou/uL (130-400); RBC Distribution Width 20.2 % (11.5-14.5); Red Blood Cell (RBC) Count 3.04 mill/uL (4.70-6.10); White Blood Cell (WBC) Count 7.1 thou/uL (4.8-10.8)
[2019-10-09 05:37] LABS: Anion Gap 12 mmol/L (10-20); BUN (Urea Nitrogen) 21 mg/dL (8.4-25.7); Calc. Creatinine Clearance 83 mL/min (70-130); Calcium 8.9 mg/dL (7.8-10.44); Carbon Dioxide 34 mmol/L (23-31); Chloride 94 mmol/L (98-107); Estimated GFR-MDRD 61; Glucose 97 mg/dL (83-110); Potassium 3.6 mmol/L (3.5-5.1); Sodium 136 mmol/L (136-145)
[2019-10-09] MEDS: Furosemide 40 MG/4 ML VIAL SLOW IVP SCH (06:29)
[2019-10-09] MEDS: Carvedilol 3.125 MG TAB PO SCH (07:37)
[2019-10-09] MEDS: guaiFENesin/DM ER PO SCH (07:37)
[2019-10-09] MEDS: Aspirin 81 mg Enteric Coated Tablet PO SCH (07:37)
[2019-10-09] MEDS: Heparin 5,000 UNITS/ML VIAL SC SCH ×2 (07:38→14:18)
[2019-10-09] MEDS: Famotidine/PF 20 mg/2ml Vial SLOW IVP SCH (07:38)
[2019-10-09] MEDS ORDERED: Ferrous Sulfate 325 MG TAB PO SCH (08:00)
[2019-10-09] MEDS ORDERED: Metolazone 5 MG TAB PO SCH (08:15)
[2019-10-09] MEDS ORDERED: Lisinopril 10 MG TAB PO SCH (09:00)
--- NOTE | 2019-10-09 10:06 | PDOC.HOSPP ---
- Subjective Encounter Date: 10/09/19 Encounter Time: 13:30 Subjective: Patient denies complaints. Mild confusion from dementia. - Objective Vital Signs & Weight: Vital Signs (12 hours) Temp Pulse Resp BP BP Pulse Ox 10/09/19 07:44 97.6 F 70 20 135/65 95 10/09/19 07:38 135/65 10/09/19 04:00 97.8 F 64 20 121/58 L 95 10/09/19 02:23 64 20 91 L 10/09/19 00:00 95 10/08/19 22:59 86 28 H 79 L Weight Weight 260 lb 11.2 oz I&O: 10/08/19 10/09/19 10/10/19 06:59 06:59 06:59 Intake Total 990 850 Output Total 2100 1100 Balance -1110 -250 Result Diagrams: 10/09/19 04:13 10/09/19 04:13 Hospitalist ROS - Review of Systems Respiratory: denies: cough, shortness of breath Cardiovascular: denies: chest pain Gastrointestinal: denies: nausea, vomiting, abdominal pain - Medication Medications: Active Medications Generic Name Dose Route Start Last Admin Trade Name Freq PRN Reason Stop Dose Admin Albuterol/Ipratropium 3 ml 10/06/19 14:30 10/09/19 09:49 Duoneb NEB Not Given [id number] KATHIE Aspirin 81 mg 10/08/19 09:00 10/09/19 07:37 Ecotrin PO 81 mg DAILY KATHIE Administration Carvedilol 3.125 mg 10/07/19 17:00 10/09/19 07:37 Coreg PO 3.125 mg BID-WM KATHIE Administration Famotidine 20 mg 10/06/19 21:00 10/09/19 07:38 Pepcid SLOW IVP 20 mg Q12HR KATHIE Administration Ferrous Sulfate 325 mg 10/09/19 08:00 10/09/19 07:37 Feosol PO 325 mg QAM-WM KATHIE Administration Furosemide 40 mg 10/07/19 06:00 10/09/19 06:29 Lasix SLOW IVP 40 mg 0600,1400 KATHIE Administration Guaifenesin/Dextromethorphan 1 tab 10/07/19 21:00 10/09/19 07:37 Mucinex Dm PO 1 tab Q12HR KATHIE Administration Heparin Sodium (Porcine) 5,000 units 10/07/19 21:00 10/09/19 07:38 Heparin SC 5,000 units TID KATHIE Administration Lisinopril 10 mg 10/09/19 09:00 10/09/19 07:38 Zestril PO 10 mg DAILY KATHIE Administration Metolazone 5 mg 10/09/19 08:15 10/09/19 09:41 Zaroxolyn PO 10/09/19 10:15 5 mg NOW KATHIE Administration Simvastatin 20 mg 10/07/19 21:00 10/08/19 21:18 Zocor PO 20 mg HS KATHIE Administration - Exam General Appearance: NAD Eye: anicteric sclera ENT: moist mucosa Heart: RRR, no murmur, no gallops, no rubs Respiratory: CTAB, no wheezes, no rales, no ronchi Gastrointestinal: soft, non-tender, non-distended, normal bowel sounds Extremities - other findings: trace lower ext edema Psychiatric: normal affect, normal behavior Hosp A/P - Plan This is an 84 year old male with history of penile cancer who presented with shortness of breath, cough, found to be in CHF exacerbation Acute CHF exacerbation - patient is on Lasix 40 mg IV BId, repeat chest Xray shows significant improvement in pulmonary edema - will check an ECHO (results still pending), two more troponins, Dr. Lincoln following - on mucinex - continue breathing treatments Chronic respiratory failure - on 2L of oxygen at baseline Penile cancer - patient has an appointment at [facility] this week. He is due for a PET scan this week Anemia - Hb 9.6, iron panel consistent with mixed iron deficiency and anemia of chronic disease Alzheimers disease - outpatient follow up Dispo: cleared for d/c by cardiology, back to assisted living with PT/OT DVT prophylaxiS: heparin SC TID Code status: full code
[2019-10-09 11:23] VITALS: BP 116/53; TEMP 97.3
[2019-10-09] MEDS ORDERED: Polyvinyl Alcohol 1.4%/Povidone 0.6% Opth Drops EA EYE PRN (13:40)
--- NOTE | 2019-10-09 17:15 | DIS ---
DATE OF ADMISSION: 10/06/2019 DATE OF DISCHARGE: 10/09/2019 PRIMARY CARE PHYSICIAN: Mignon James. REASON FOR ADMISSION: CHF exacerbation. DIAGNOSES AT DISCHARGE: 1. Acute exacerbation of diastolic congestive heart failure. 2. Chronic respiratory failure on 2 L oxygen at baseline. 3. Penile cancer being followed at [facility]. 4. Anemia of chronic disease. 5. Alzheimer disease. 6. Hypertension. PROCEDURES: Venous Dopplers of bilateral lower extremities showing no evidence for deep venous thrombosis. CONSULTATIONS: Cardiology, Chavez Lincoln MD SUMMARY OF HOSPITAL COURSE: This is an 84-year-old white male with a history of hypertension and dementia, lives in assisted care facility. He is getting treated for penile cancer, has an appointment with [facility]. The patient came into the ER due to difficulty with breathing. He was found to be in florid heart failure, was given 80 mg IV Lasix and then hold on continued diuresis. He diuresed well in the hospital. Dr. Lincoln was consulted, whose diagnosis is likely diastolic congestive heart failure. Echo was ordered. The results are pending at this time. The patient improved during hospitalization and was doing well in his baseline 2 L of oxygen by discharge with no further shortness of breath. He was cleared for discharge by Dr. Lincoln. DISCHARGE MANAGEMENT: Discharged back to assisted living with home health for PT and OT. ACTIVITY: As tolerated. DIET: Healthy heart low-sodium, fluid-restricted diet. FOLLOWUP: The patient is to follow up with cardiac rehab. He has standard home health as well he will follow up with Dr. Stern on the October 12 and with his primary care physician in 7 days, and with Dr. Leiva on November 03. DISCHARGE MEDICATIONS: The patient is to resume his home medications. 1. Acetaminophen as needed. 2. Albuterol 2 puffs every 6 hours as needed. 3. Allopurinol 300 mg daily. 4. Aspirin 81 mg daily. 5. Carvedilol 3.125 mg twice a day. 6. Cephalexin 500 mg twice a day. 7. Vitamin D3 every 30 days. 8. Vitamin B12 of 1000 mcg daily. 9. Finasteride 5 mg daily. 10. Furosemide 40 mg daily. 11. Galantamine extended release 16 mg daily. 12. Lisinopril 20 mg daily. 13. Memantine 10 mg twice a day. 14. [place]-3 fatty acids one capsule daily. 15. Paroxetine 40 mg daily. 16. Refresh Classic eye drops. 17. Potassium chloride 10 mEq daily. 18. Pyridoxine 100 mg daily. 19. Simvastatin 20 mg at night. 20. Tamsulosin 0.8 mg daily. TIME SPENT: Arranging the details of this discharge took 35 minutes. Job ID: [id number]
[2019-10-10] MEDS ORDERED: Allopurinol 300 MG TAB PO SCH (09:00)
[2019-10-10] MEDS ORDERED: Tamsulosin HCl 0.4 MG CAP PO SCH (09:00)
[2019-10-10] MEDS ORDERED: Fish Oil 1,000 MG CAP PO SCH (09:00)
[2019-10-10] MEDS ORDERED: Potassium Chloride 10 MEQ TAB PO SCH (09:00)
[2019-10-10] MEDS ORDERED: PARoxetine 20 MG TAB PO SCH (09:00)
[2019-10-10] MEDS ORDERED: pyridOXINE 50 MG (B6) TAB PO SCH (09:00)
[2019-10-10] MEDS ORDERED: Finasteride 5 MG TAB PO SCH (09:00)
[2019-10-10] MEDS ORDERED: Furosemide 20 MG TAB PO SCH (09:00)
[2019-10-10] MEDS ORDERED: Cyanocobalamin (Vitamin B-12) 1,000 MCG TAB PO SCH (09:00)
== END 2019-10-09 16:04 | disposition home health service (06) | DRG 292 ==
LOC: ERS 11:13 → ERHOLD 12:46 → 2NO 16:07
PROVIDERS: ADMIT Internal Medicine; ATTEND Internal Medicine
DX: I11.0 Hypertensive heart disease with heart failure (principal); N17.9 Acute kidney failure, unspecified; J96.10 Chronic respiratory failure, unspecified whether with hypoxia or hypercapnia; I50.33 Acute on chronic diastolic (congestive) heart failure; N40.0 Benign prostatic hyperplasia without lower urinary tract symptoms; E78.5 Hyperlipidemia, unspecified; M10.9 Gout, unspecified; G30.9 Alzheimer's disease, unspecified; F02.80 Dementia in other diseases classified elsewhere, unspecified severity, without behavioral disturbance, psychotic disturbance, mood disturbance, and anxiety; F32.9 Major depressive disorder, single episode, unspecified; C60.9 Malignant neoplasm of penis, unspecified; E03.9 Hypothyroidism, unspecified; E11.9 Type 2 diabetes mellitus without complications; E66.9 Obesity, unspecified; D50.9 Iron deficiency anemia, unspecified; D63.8 Anemia in other chronic diseases classified elsewhere; Z87.891 Personal history of nicotine dependence; Z79.82 Long term (current) use of aspirin; Z79.899 Other long term (current) drug therapy; Z68.36 Body mass index [BMI] 36.0-36.9, adult; Z79.51 Long term (current) use of inhaled steroids
CPT/HCPCS: 36415; 36416; 71045; 80048; 80053; 82550; 82728; 82805; 83540; 83550; 83735; 83880; 84466; 84484; 85025; 85379; 87633; 93005; 93306; 93970; 94640; 96374; J1644; J1940; J7620; S0028

== ENCOUNTER 2019-10-11 13:14 | Observation (INO) | payer MEDICARE ==
[2019-10-11] MEDS ORDERED: methylPREDNISolone Sod Succ/PF 125 MG/2 ML VIAL ONE (14:08)
--- NOTE | 2019-10-11 14:47 | RAD ---
EXAM: Single view of the chest HISTORY: Cough COMPARISON: 10/08/2019 FINDINGS: Single view of the chest shows a normal sized cardiomediastinal silhouette. There is no ralph dence of consolidation, mass, or pleural effusion. The bones are unremarkable. IMPRESSION: No evidence of acute cardiopulmonary disease
[2019-10-11 14:52] LABS: Hemoglobin 10.3 g/dL (14.0-18.0); Mean Corpuscular HGB CONC 33.2 g/dL (32.0-36.0); Mean Corpuscular Hemoglobin 31.8 pg (27.0-31.0); Mean Corpuscular Volume 95.7 fL (78.0-98.0); Mean Platelet Volume 8.4 fL (7.4-10.4); Platelet Count 323 thou/uL (130-400); RBC Distribution Width 20.4 % (11.5-14.5); Red Blood Cell (RBC) Count 3.25 mill/uL (4.70-6.10); White Blood Cell (WBC) Count 6.9 thou/uL (4.8-10.8)
[2019-10-11 15:11] LABS: Anisocytosis SLIGHT = 6-15 cells (100X) (0-5/hpf); Band 20 % (5-11); Eosinophils 2 % (0-10); Lymphocytes 23 % (21-51); MDiff Complete? YES; Monocytes 8 % (0-10); Neutrophil 47 % (42-75); Ovalocytes SLIGHT = 2-5 cells (100X) (0-1/hpf); Platelet Morphology Comment Appears Adequate; Poikilocytosis SLIGHT = 6-15 cells (100X) (0-5/hpf); Polychromasia SLIGHT = 2-3 cells (100X) (0-2/hpf); Schistocytes SLIGHT = 2-5 cells (100X) (0-1/hpf); Target Cells SLIGHT = 2-5 cells (100X) (0-1/hpf); Tear Drops SLIGHT = 2-5 cells (100X) (0-1/hpf); Toxic Granulation SLIGHT; Vacuoles SLIGHT
[2019-10-11 15:12] LABS: ALT (SGPT) 48 U/L (8-55); AST (SGOT) 50 U/L (5-34); Albumin 3.9 g/dL (3.4-4.8); Alkaline Phosphatase 54 U/L (40-110); Anion Gap 13 mmol/L (10-20); BUN (Urea Nitrogen) 25 mg/dL (8.4-25.7); Bilirubin, Total 0.5 mg/dL (0.2-1.2); Calc. Creatinine Clearance 0 mL/min (70-130); Calcium 9.5 mg/dL (7.8-10.44); Carbon Dioxide 32 mmol/L (23-31); Chloride 96 mmol/L (98-107); Estimated GFR-MDRD 58; Globulin 3.6 g/dL (2.4-3.5); Glucose 111 mg/dL (83-110); Potassium 4.3 mmol/L (3.5-5.1); Protein, Total 7.5 g/dL (5.8-8.1); Sodium 137 mmol/L (136-145)
[2019-10-11 15:21] LABS: Base Excess-Venous 5.8 mmol/L (-2.0 to 3.0); Bicarbonate (HCO3v) 31.3 mmol/L (22.0-28.0); CO2 Tension (PvCO2) 47.9 mmHg (40.0-50.0); Calcium, Ionized 1.11 mmol/L (See Comments:); Chloride 96 mmol/L (98-107); Hemoglobin - Calc 12.6 g/dL (14.0-18.0); Potassium 4.1 mmol/L (3.5-5.1); Sodium 138 mmol/L (138-145); T. Carbon Dioxide 32.7 mmol/L (22.0-28.0); vO2 Saturation-calc 94.6 % (60.0-85.0)
[2019-10-11 15:59] LABS: Bacteria/HPF None Seen HPF (None Seen); Bilirubin Negative (Negative); Blood, Urine Negative (Negative); Clarity Clear (Clear); Glucose, Urine (Dipstick) Normal (Negative); Leukocyte 25 Leu/uL (Negative); Nitrite Negative (Negative); Protein, Urine (Dipstick) Negative (Neg-Trace); RBC/HPF 0-3 HPF (0-3); Squamous Epithelial None Seen HPF (0-3); Urobilinogen Normal mg/dL (Less than 2); WBC/HPF 0-3 HPF (0-3)
[2019-10-11] MEDS ORDERED: Acetaminophen 325 MG TAB PO PRN (16:59)
[2019-10-11] MEDS ORDERED: Senokot S 8.6-50 MG TAB PO PRN (16:59)
[2019-10-11] MEDS ORDERED: Bacteriostatic Water 30 ML VIAL FS PRN (17:17)
[2019-10-11] MEDS ORDERED: methylPREDNISolone Sod Succ 40 MG VIAL IVP SCH (18:00)
[2019-10-11] MEDS ORDERED: Albuterol Sulfate 2.5 mg/0.5 ml Neb NEB PRN (18:58)
[2019-10-11 20:00] VITALS: BMI 37.3
[2019-10-11] MEDS: Famotidine 20 MG TAB PO SCH (21:16)
[2019-10-11] MEDS: methylPREDNISolone Sod Succ 40 MG VIAL IVP SCH (21:16)
[2019-10-11] MEDS ORDERED: Sodium Chloride 0.9% 1,000 ML IV SCH (23:00)
--- NOTE | 2019-10-12 00:33 | HP ---
PRIMARY CARE PHYSICIAN: None. CHIEF COMPLAINT: Shortness of breath, hypoxia. HISTORY OF PRESENT ILLNESS: This is a very pleasant 84-year-old man staying at [facility] with a history of Alzheimer's dementia, was recently admitted, and discharged within the last 7 days for similar complaints. Triage notes in the ER state he was flu positive on 09/30, although that must have been tested elsewhere, because I do not see a positive one in his record. He was given a DuoNeb prior to arrival. States that his oxygen status was in the 80s on room air, and he was placed on 2 L of O2 with improvement of pulse ox. On exam, he was found to be wheezing posteriorly with rales and decreased breath sounds at the bases. He was given subsequent DuoNebs and 62.5 mg of Solu-Medrol and 1000 mL of fluids and then admitted to the hospitalist service for COPD exacerbation. The patient does not have a documented history of COPD. He was admitted prior to [facility] on 10/06 for CHF exacerbation, improved. He was seen by Dr. Lincoln, Cardiology, and sent home. Sister reports that the [facility] was concerned that his breathing was much better when he returned back to the [facility], and he was sent back here for further evaluation. He does reports that he has had generalized deconditioning with shortness of breath with ambulation. Reports that he gets up from his room and goes down to the cafeteria for meals. Reports that he uses a walker and noted that he has been getting more short of breath, when he does this. He denies any oxygen use daily in the past. He denies any need for DuoNeb treatments or nebulizers. Has had a productive cough. He denies any fevers, any chills. He does report that his legs do ache and swell. He denies any orthopnea. All systems are reviewed and are negative unless mentioned in the HPI. ED course, he was given Solu-Medrol and DuoNeb. Reports that his breathing is better on 3 L of O2 in the ER. He is saturating at 98% to 100%. Chest x-ray was done and shows no findings of any CHF exacerbation or any reactive airway disease. He does have some cardiomegaly without any pulmonary vasculature engorgement. BNP was less than 100. He will be admitted for further management. PAST MEDICAL HISTORY: Hypertension, hyperlipidemia, hemorrhoids, Alzheimer's dementia, gout, and penile cancer. PAST SURGICAL HISTORY: Cystoscopy, hemorrhoidectomy, and Achilles tendon repair. FAMILY HISTORY: No pertinent history. SOCIAL HISTORY: He was a former smoker. He reports he smokes cigars 40 years ago. Denies any alcohol or drug use. He is in assisted living at the [facility]. PHYSICAL EXAMINATION: VITAL SIGNS: Temp is 98, pulse is 60, respiration rate is 24, O2 sats are 99% on 3 L, and blood pressure 157/89. GENERAL APPEARANCE: He is alert and oriented. He does answered some questions. He is pleasantly confused. He is somewhat short of breath with extended talking. No acute distress. ENT: He has moist mucosa. Mouth exam is normal. NECK: Supple with no lymphadenopathy. HEART: Regular heart rate and rhythm. Heart sounds are normal. Normal peripheral pulses. RESPIRATORY: He has scattered wheezing and rales at the bases. Diminished breath sounds at the bases. GI: Soft and nontender. EXTREMITIES: With 2+ lower extremity edema. SKIN: Warm, dry, normal in color. NEUROLOGIC: Cranial nerves are grossly intact. MUSCULOSKELETAL: Generalized weakness. Nothing focal. PSYCH: Normal speech. A and O are x3. DIAGNOSTIC DATA: EKG in the emergency room shows normal rate and rhythm, beats per minute 64, first-degree AV block. LABORATORY DATA: Urine unremarkable. BNP 42.2. First troponin is undetectable. Chloride 96, carbon dioxide 32, glucose 111, AST is 50, and ALT is 48. White blood cell count 6.9, hemoglobin 10.3, hematocrit 31.1, and bands are 20. Screening for the flu is negative. D-dimer is 0.84. Procalcitonin 0.04. PLAN AND ASSESSMENT: 1. Hypoxia is probably has multi-component presentation. The patient does have some wheezing which he improves with steroids and DuoNebs. We will repeat these q.4 hours at 40 mg of Solu-Medrol q.8. We will hold off on the antibiotics for now as the patient's white blood cell count is normal and he is afebrile. D-dimer is elevated. We will obtain a CTA. The patient had bilateral lower extremity ultrasounds on the last admission, which were negative. As the patient has continued hypoxia and dyspnea, we will get a CTA to rule out pulmonary embolism. 2. Congestive heart failure. This appears stable. The patient does not appear to have an echocardiogram done on last admission. His sister reported he had one scheduled as an outpatient but has now been admitted twice and will miss his appointment. The patient is on Lasix 40 mg p.o. daily. We will change this to 40 mg IV push daily. 3. History of hypertension. We will restart home medications. 4. History of hyperlipidemia. We will restart home medications. 5. History of penile cancer. We will restart home medications. 6. Case discussed with Dr. Covington, who agrees to plan. 7. We will get a PT evaluation. 8. We will repeat labs in the a.m. 9. Hospital course is dependent on clinical findings. 10. Patient states he does not wish to be resuscitated and wishes to be a DNR. His sister is at the bedside, is MPOA and confirms the DNR status. Reports he most likely has a OOH DNR as well. Job ID: [id number] [facility] HOSPITALFederico
[2019-10-12] MEDS: methylPREDNISolone Sod Succ 40 MG VIAL IVP SCH ×2 (05:28→14:56)
[2019-10-12 05:30] LABS: #Monocytes 0.2 thou/uL (0.11-0.59); #Neutrophils 5.3 thou/uL (1.40-6.50); %Basophils 0.4 % (0.0-1.0); %Eosinophils 0.5 % (0.0-10.0); %Lymphocytes 15.2 % (21.0-51.0); %Monocytes 3.5 % (0.0-10.0); %Neutrophils 80.4 % (42.0-75.0); Hemoglobin 10.4 g/dL (14.0-18.0); Mean Corpuscular HGB CONC 32.5 g/dL (32.0-36.0); Mean Corpuscular Hemoglobin 31.5 pg (27.0-31.0); Mean Corpuscular Volume 97.1 fL (78.0-98.0); Mean Platelet Volume 9.2 fL (7.4-10.4); Platelet Count 306 thou/uL (130-400); RBC Distribution Width 20.6 % (11.5-14.5); Red Blood Cell (RBC) Count 3.31 mill/uL (4.70-6.10); White Blood Cell (WBC) Count 6.6 thou/uL (4.8-10.8)
[2019-10-12 06:01] LABS: ALT (SGPT) 44 U/L (8-55); AST (SGOT) 43 U/L (5-34); Albumin 3.6 g/dL (3.4-4.8); Alkaline Phosphatase 46 U/L (40-110); Anion Gap 11 mmol/L (10-20); BUN (Urea Nitrogen) 23 mg/dL (8.4-25.7); Bilirubin, Total 0.4 mg/dL (0.2-1.2); Calc. Creatinine Clearance 93 mL/min (70-130); Carbon Dioxide 29 mmol/L (23-31); Chloride 100 mmol/L (98-107); Estimated GFR-MDRD 65; Globulin 3.4 g/dL (2.4-3.5); Glucose 170 mg/dL (83-110); Potassium 4.3 mmol/L (3.5-5.1); Sodium 136 mmol/L (136-145)
[2019-10-12] MEDS: Famotidine 20 MG TAB PO SCH ×2 (08:13→20:07)
[2019-10-12] MEDS: Enoxaparin Sodium 40 MG/0.4 ML SYRINGE SC SCH (08:13)
[2019-10-12] MEDS: Furosemide 40 MG/4 ML VIAL SLOW IVP SCH (08:13)
[2019-10-12] MEDS ORDERED: Prevnar 13-Val Conj/PF 0.5 ML SYRINGE IM ONE (09:00)
--- NOTE | 2019-10-12 11:29 | CT ---
CT PULMONARY ANGIOGRAM WITH IV CONTRAST AND 3D POSTPROCESSING: HISTORY: Dyspnea, hypoxia, elevated D-dimer. FINDINGS: There is good contrast opacification of the pulmonary arterial vasculature without filling defects to suggest pulmonary embolism. The thoracic aorta is well opacified without aneurysmal dissection. No pleural or pericardial effusions are seen. Chronic changes in the lung vogel are again seen as on the CT scan of 10/16/2018. There is a new peripheral 7 mm nodule in the left upper lobe. There are degenerative changes in the spine. A small hiatal hernia is present. There is incomplete visualization of a cyst arising from the left kidney. IMPRESSION: No CT evidence of pulmonary embolism. A new 7 mm peripheral left lung nodule in the left upper lobe. RECOMMENDATION: A followup CT scan of the chest is recommended in 6 months. CODE T POS: OFF
--- NOTE | 2019-10-12 15:31 | PDOC.HOSPP ---
- Subjective Subjective: Mr. Kelley continues with SOB and use of nasal cannula for oxygen supplementation. He is currently on 2L. No other complaints. - Objective Vital Signs & Weight: Vital Signs (12 hours) Temp Pulse Resp BP BP Pulse Ox Pulse Ox 10/12/19 14:39 71 20 93 L 10/12/19 11:50 92 L 10/12/19 11:20 98.6 F 83 20 136/77 93 L 10/12/19 07:33 97.3 F L 66 20 128/78 96 10/12/19 07:15 59 L 20 95 10/12/19 04:16 97.3 F L 68 16 153/83 H 95 Pulse Ox Pulse Ox 10/12/19 14:39 10/12/19 11:50 84 L 94 L 10/12/19 11:20 10/12/19 07:33 10/12/19 07:15 10/12/19 04:16 Weight Weight 275 lb I&O: 10/11/19 10/12/19 10/13/19 06:59 06:59 06:59 Intake Total 1040 780 Balance 1040 780 Result Diagrams: 10/12/19 05:07 10/12/19 05:07 Hospitalist ROS - Review of Systems Constitutional: denies: fever, chills, sweats, weakness, malaise, other Respiratory: reports: cough, shortness of breath Cardiovascular: denies: chest pain, palpitations, orthopnea, paroxysmal noc. dyspnea, edema, light headedness, other Gastrointestinal: denies: nausea, vomiting, abdominal pain, diarrhea, constipation, melena, hematochezia, other - Medication Medications: Active Medications Generic Name Dose Route Start Last Admin Trade Name Freq PRN Reason Stop Dose Admin Albuterol/Ipratropium 3 ml 10/11/19 18:30 10/12/19 14:39 Duoneb NEB 3 ml [id number] KATHIE Administration Enoxaparin Sodium 40 mg 10/12/19 09:00 10/12/19 08:13 Lovenox SC 40 mg 0900 KATHIE Administration Famotidine 20 mg 10/11/19 21:00 10/12/19 08:13 Pepcid PO 20 mg BID KATHIE Administration Furosemide 40 mg 10/12/19 09:00 10/12/19 08:13 Lasix SLOW IVP 40 mg DAILY KATHIE Administration Methylprednisolone Sodium Succinate 40 mg 10/11/19 22:00 10/12/19 14:56 Solu-Medrol IVP 40 mg Q8HR KATHIE Administration - Exam General Appearance: NAD, awake alert Eye: PERRL, anicteric sclera ENT: normocephalic atraumatic, no oropharyngeal lesions, moist mucosa Neck: supple, symmetric, no JVD, no thyromegaly, no lymphadenopathy, no carotid bruit Neck - other findings: short, obese neck Heart: RRR, no murmur, no gallops, no rubs, normal peripheral pulses Respiratory: CTAB, no wheezes, no rales, no ronchi, normal chest expansion, no tachypnea, normal percussion Gastrointestinal: soft, non-tender, non-distended, normal bowel sounds, no palpable masses, no hepatomegaly, no splenomegaly, no bruit Gastrointestinal - other findings: protuberant abdomen Extremities: no cyanosis, no clubbing, 1+ LE edema Skin: normal turgor, no lesions, no rashes Neurological: cranial nerve grossly intact, normal sensation to touch, no weakness, no focal deficits, no new deficit Musculoskeletal: normal tone, normal strength, no muscle wasting Psychiatric: normal affect, normal behavior, A&O x 3 Hosp A/P (1) Acute on chronic diastolic (congestive) heart failure Code(s): I50.33 - ACUTE ON CHRONIC DIASTOLIC (CONGESTIVE) HEART FAILURE Status : Acute (2) Obesity Code(s): E66.9 - OBESITY, UNSPECIFIED Status: Chronic (3) Hypertension Code(s): I10 - ESSENTIAL (PRIMARY) HYPERTENSION Status: Chronic (4) BPH (benign prostatic hyperplasia) Code(s): N40.0 - BENIGN PROSTATIC HYPERPLASIA WITHOUT LOWER URINRY TRACT SYMP Status: Acute (5) Dementia Code(s): F03.90 - UNSPECIFIED DEMENTIA WITHOUT BEHAVIORAL DISTURBANCE Status: Chronic - Plan Echo report reviewed from beginning of this month, he appears to have diasolitc dysfunction, which is a possible cause of his overload Continue IV lasix for now Would like to acquire PFTs to see if any obstructive or restrictive defects at play that may be exacerbating his symptoms Consult pulmonary, ABG reviewed from , showing elevated A-a gradient and hypoxemia on nasal cannula. He may have undiagnosed NEGRO/OHS given his BMI Continue his medication for hypertension, dementia, and BPH from home CXR in the AM DVT prophylaxis: Lovenox Disposition: Continue to diuresis. Wean off nasal cannula. Futher workup of hypoxemia.
[2019-10-12] MEDS: Atorvastatin Calcium 10 MG TAB PO SCH (20:07)
[2019-10-13] MEDS: cefTRIAXone\\ROCEPHIN 1 GM in Sodium Chloride 0.9% 100 ML IVPB SCH (06:23)
--- NOTE | 2019-10-13 08:08 | RAD ---
Frontal view chest COMPARISON: 10/11/2019 FINDINGS: Chest is stable appearing with evidence of interstitial edema and vascular congestion. Card iac silhouette remains prominent. IMPRESSION: Stable findings of fluid overload related to CHF.
[2019-10-13] MEDS: Tamsulosin HCl 0.4 MG CAP PO SCH (08:12)
[2019-10-13] MEDS: Potassium Chloride 10 MEQ TAB PO SCH (08:12)
[2019-10-13] MEDS: Aspirin 81 mg Enteric Coated Tablet PO SCH (08:12)
[2019-10-13] MEDS: Finasteride 5 MG TAB PO SCH (08:12)
[2019-10-13] MEDS: Furosemide 40 MG/4 ML VIAL SLOW IVP SCH (08:13)
[2019-10-13] MEDS: PARoxetine 20 MG TAB PO SCH (08:13)
[2019-10-13] MEDS: Enoxaparin Sodium 40 MG/0.4 ML SYRINGE SC SCH (08:13)
[2019-10-13] MEDS: Famotidine 20 MG TAB PO SCH ×2 (08:13→21:12)
[2019-10-13] MEDS: Cyanocobalamin (Vitamin B-12) 1,000 MCG TAB PO SCH (08:13)
--- NOTE | 2019-10-13 10:20 | PDOC.HOSPP ---
- Subjective Subjective: Continues with SOB on NC 3L. Intake and output is not accurate as patient is going to bathroom. No other overnight complaints. - Objective Vital Signs & Weight: Vital Signs (12 hours) Temp Pulse Resp BP BP Pulse Ox 10/13/19 08:29 97.3 F L 28 L 28 H 168/71 H 94 L 10/13/19 07:03 95 10/13/19 07:02 63 16 95 10/13/19 04:00 97.9 F 67 18 124/67 92 L 10/13/19 00:00 98.0 F 71 18 125/66 96 10/12/19 22:40 16 Weight Weight 275 lb I&O: 10/12/19 10/13/19 10/14/19 06:59 06:59 06:59 Intake Total 1040 1610 Balance 1040 1610 Result Diagrams: 10/12/19 05:07 10/12/19 05:07 Hospitalist ROS - Review of Systems Constitutional: denies: fever, chills, sweats, weakness, malaise, other Respiratory: reports: shortness of breath. denies: cough, dry, hemoptysis, SOB with excertion, pleuritic pain, sputum, wheezing, other Cardiovascular: denies: chest pain, palpitations, orthopnea, paroxysmal noc. dyspnea, edema, light headedness, other Gastrointestinal: denies: nausea, vomiting, abdominal pain, diarrhea, constipation, melena, hematochezia, other - Medication Medications: Active Medications Generic Name Dose Route Start Last Admin Trade Name Freq PRN Reason Stop Dose Admin Albuterol/Ipratropium 3 ml 10/11/19 18:30 10/13/19 07:02 Duoneb NEB 3 ml [id number] KATHIE Administration Aspirin 81 mg 10/13/19 09:00 10/13/19 08:12 Ecotrin PO 81 mg DAILY KATHIE Administration Atorvastatin Calcium 10 mg 10/12/19 21:00 10/12/19 20:07 Lipitor PO 10 mg HS KATHIE Administration Cholecalciferol 5,000 units 10/13/19 09:00 10/13/19 08:12 Vitamin D3 PO 5,000 units DAILY KATHIE Administration Cyanocobalamin 1,000 mcg 10/13/19 09:00 10/13/19 08:13 Vitamin B-12 PO 1,000 mcg DAILY KATHIE Administration Enoxaparin Sodium 40 mg 10/12/19 09:00 10/13/19 08:13 Lovenox SC 40 mg 0900 KATHIE Administration Famotidine 20 mg 10/11/19 21:00 10/13/19 08:13 Pepcid PO 20 mg BID KATHIE Administration Finasteride 5 mg 10/13/19 09:00 10/13/19 08:12 Proscar PO 5 mg DAILY KATHIE Administration Furosemide 40 mg 10/12/19 09:00 10/13/19 08:13 Lasix SLOW IVP 40 mg DAILY KATHIE Administration Ceftriaxone Sodium 1 gm/ 100 mls @ 200 mls/hr 10/13/19 05:00 10/13/19 06:23 Sodium Chloride IVPB 100 mls Q24HR KATHIE Administration Memantine 10 mg 10/12/19 21:00 10/13/19 08:13 Namenda PO 10 mg BID KATHIE Administration Paroxetine HCl 40 mg 10/13/19 09:00 10/13/19 08:13 Paxil PO 40 mg DAILY KATHIE Administration Potassium Chloride 10 meq 10/13/19 09:00 10/13/19 08:12 Klor-Con 10 PO 10 meq DAILY KATHIE Administration Tamsulosin HCl 0.8 mg 10/13/19 09:00 10/13/19 08:12 Flomax PO 0.8 mg DAILY KATHIE Administration - Exam General Appearance: NAD, awake alert Eye: PERRL, anicteric sclera ENT: normocephalic atraumatic, no oropharyngeal lesions, moist mucosa Neck: supple, symmetric, no JVD, no thyromegaly, no lymphadenopathy, no carotid bruit Heart: RRR, no murmur, no gallops, no rubs, normal peripheral pulses Respiratory: CTAB Respiratory - other findings: Short breathing, bibasilar crackles auscustated Gastrointestinal: soft, non-tender, non-distended, normal bowel sounds, no palpable masses, no hepatomegaly, no splenomegaly, no bruit Extremities: no cyanosis, no clubbing, 1+ LE edema Skin: normal turgor, no lesions, no rashes Neurological: cranial nerve grossly intact, normal sensation to touch, no weakness, no focal deficits, no new deficit Musculoskeletal: normal tone, normal strength, no muscle wasting Psychiatric: normal affect, normal behavior, A&O x 3 Hosp A/P (1) Acute on chronic diastolic (congestive) heart failure Code(s): I50.33 - ACUTE ON CHRONIC DIASTOLIC (CONGESTIVE) HEART FAILURE Status : Acute (2) Obesity Code(s): E66.9 - OBESITY, UNSPECIFIED Status: Chronic (3) Hypertension Code(s): I10 - ESSENTIAL (PRIMARY) HYPERTENSION Status: Chronic (4) BPH (benign prostatic hyperplasia) Code(s): N40.0 - BENIGN PROSTATIC HYPERPLASIA WITHOUT LOWER URINRY TRACT SYMP Status: Acute (5) Dementia Code(s): F03.90 - UNSPECIFIED DEMENTIA WITHOUT BEHAVIORAL DISTURBANCE Status: Chronic - Plan Echo report reviewed from beginning of this month, he appears to have diasolitc dysfunction, which is a possible cause of his overload Switch to PO lasix for now PFT or sleep study cannot be done inpatient, [facility] state poor candidate given his advanced age and dementia, may have early fibrosis Continue his medication for hypertension, dementia, and BPH from home DVT prophylaxis: Lovenox Disposition: Could have been discharged today from my standpoint, but assisted living facility will not accept him back. He is on oxygen and able to take diuretics and abx PO now. Will plan for nursing care, like senior living given the fact that his nursing care needs may be more than can be handled at the assisted living facility.
--- NOTE | 2019-10-13 13:37 | CON ---
DATE OF CONSULTATION: 10/13/2019 CONSULTING PHYSICIAN: [facility]. REASON FOR CONSULTATION: Hypoxemia. HISTORY OF PRESENT ILLNESS: Mr. Kelley is an 84-year-old male, who was hospitalized on 10/11/2019 to the hospitalist group with shortness of breath and hypoxemia. It is very difficult to get a history from him, although he is very pleasant, he cannot stay on task more than a few minutes without repeating himself. He does have Alzheimer disease and stays at the Alzheimer's unit at [facility]. According to his history and physical, he was noted to have O2 saturations in the 80s on room air at the time of admission. This corrected with 2 L nasal cannula. He had a recent bout of the flu in mid September. He has a history of diastolic heart dysfunction. He has been treated during this admission as if he has heart failure, although his BNP was low. PAST MEDICAL HISTORY: 1. Hypertension. 2. Hyperlipidemia. 3. Diastolic heart dysfunction. 4. Hemorrhoids. 5. Alzheimer's dementia. 6. Gout. 7. Penile cancer. PAST SURGICAL HISTORY: 1. Cystoscopy. 2. Hemorrhoidectomy. 3. Achilles tendon repair. FAMILY MEDICAL HISTORY: Unremarkable. SOCIAL HISTORY: Smoked very briefly, mostly cigars for about 3 years. 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 REVIEW OF SYSTEMS: Difficult to obtain because he cannot remember anything. MEDICATIONS PRIOR TO ADMISSION: These were reviewed list of home medication section on the chart. CURRENT INPATIENT MEDICATIONS: Also reviewed, listed under the active medication section on the chart. PHYSICAL EXAMINATION: VITAL SIGNS: Temperature 97.7, pulse 74, respirations 18, O2 saturation is 89% on room air and 95% on 3 L, and blood pressure 146/63. HEENT: Unremarkable. NECK: No adenopathy or JVD. LUNGS: With crackles at both bases about [address] No wheezing or rhonchi. CARDIOVASCULAR: S1 and S2, regular. ABDOMEN: Soft and nontender. EXTREMITIES: No edema. LABORATORY DATA: Sodium 136, potassium 4.3, chloride 100, CO2 of 29, BUN 23, creatinine 1.0, and glucose 170. BNP level was 42.2. Procalcitonin 0.04. I reviewed a CT of his chest that was done. He actually has some interstitial changes at the bases with some honeycombing. His blood gas; pH 7.42, pCO2 of 47, pO2 of 73. ASSESSMENT: This patient likely suffers from hypoxemia due to interstitial lung disease. He may have early pulmonary fibrosis. What we are seeing could also be the sequela of a recent or current pneumonia. I doubt that he has active heart failure based on the appearance of the x-ray and the low BNP. RECOMMENDATIONS: He is not a candidate for a sleep study or PFT secondary to his dementia. I think the best you can do is give him supplemental oxygen as long as he needs it. He does not appear to have reactive airway disease and I would avoid steroids in this patient if at all possible. I would treat him for a total a week with antibiotics. No further recommendations at this time. Job ID: [id number]
[2019-10-13] MEDS: Atorvastatin Calcium 10 MG TAB PO SCH (21:12)
[2019-10-14] MEDS: Cepastat Lozenges 1 LOZ PO PRN (04:36)
[2019-10-14] MEDS: Diabetic Tussin 200 MG/10 ML UDCUP PO PRN (04:36)
[2019-10-14] MEDS: cefTRIAXone\\ROCEPHIN 1 GM in Sodium Chloride 0.9% 100 ML IVPB SCH (04:50)
[2019-10-14 06:10] LABS: Anion Gap 12 mmol/L (10-20); BUN (Urea Nitrogen) 30 mg/dL (8.4-25.7); Calc. Creatinine Clearance 97 mL/min (70-130); Calcium 9.4 mg/dL (7.8-10.44); Carbon Dioxide 32 mmol/L (23-31); Chloride 98 mmol/L (98-107); Estimated GFR-MDRD 68; Glucose 107 mg/dL (83-110); Potassium 4.6 mmol/L (3.5-5.1); Sodium 137 mmol/L (136-145)
[2019-10-14] MEDS ORDERED: Benzonatate 100 MG CAP PO PRN (06:28)
[2019-10-14 06:50] LABS: Hemoglobin 11.2 g/dL (14.0-18.0); Mean Corpuscular HGB CONC 30.1 g/dL (32.0-36.0); Mean Corpuscular Hemoglobin 30.6 pg (27.0-31.0); Platelet Count 192 thou/uL (130-400); RBC Distribution Width 22.6 % (11.5-14.5); Red Blood Cell (RBC) Count 3.66 mill/uL (4.70-6.10); White Blood Cell (WBC) Count 8.1 thou/uL (4.8-10.8)
[2019-10-14 06:51] LABS: Eosinophils 1 % (0-10); Lymphocytes 34 % (21-51); MDiff Complete? YES; Monocytes 2 % (0-10); Neutrophil 63 % (42-75); Platelet Morphology Comment Appears Adequate
[2019-10-14] MEDS ORDERED: Furosemide 40 MG/4 ML VIAL SLOW IVP SCH (07:00)
--- NOTE | 2019-10-14 08:03 | RAD ---
EXAM: Single view of the chest HISTORY: Shortness of breath COMPARISON: 10/13/2019 FINDINGS: Single view of the chest shows a normal sized cardiomediastinal silhouette. There is no ralph dence of consolidation, mass, or pleural effusion. The bones are unremarkable. IMPRESSION: No evidence of acute cardiopulmonary disease
[2019-10-14] MEDS: Tamsulosin HCl 0.4 MG CAP PO SCH (09:55)
[2019-10-14] MEDS: Aspirin 81 mg Enteric Coated Tablet PO SCH (09:55)
[2019-10-14] MEDS: Cyanocobalamin (Vitamin B-12) 1,000 MCG TAB PO SCH (09:56)
[2019-10-14] MEDS: PARoxetine 20 MG TAB PO SCH (09:56)
[2019-10-14] MEDS: Finasteride 5 MG TAB PO SCH (09:56)
[2019-10-14] MEDS: Potassium Chloride 10 MEQ TAB PO SCH (09:56)
[2019-10-14] MEDS: guaiFENesin ER 600 MG TAB PO SCH ×2 (09:56→20:54)
[2019-10-14] MEDS: Famotidine 20 MG TAB PO SCH ×2 (09:56→20:54)
[2019-10-14] MEDS: Enoxaparin Sodium 40 MG/0.4 ML SYRINGE SC SCH (10:03)
--- NOTE | 2019-10-14 11:28 | PDOC.HOSPP ---
- Subjective Subjective: Continues with cough this AM. Tolerating PO and working well with physical therapy. - Objective Vital Signs & Weight: Vital Signs (12 hours) Temp Pulse Resp BP Pulse Ox 10/14/19 09:35 86 16 10/14/19 07:58 97.4 F L 86 20 145/68 H 94 L 10/14/19 03:47 98.5 F 65 16 145/74 H 94 L 10/14/19 01:47 68 14 91 L 10/13/19 23:54 98 F 68 16 126/73 97 Weight Weight 275 lb I&O: 10/13/19 10/14/19 10/15/19 06:59 06:59 06:59 Intake Total 1610 1720 240 Balance 1610 1720 240 Result Diagrams: 10/14/19 05:25 10/14/19 05:25 Hospitalist ROS - Review of Systems Constitutional: denies: fever, chills, sweats, weakness, malaise, other Respiratory: reports: cough. denies: dry, shortness of breath, hemoptysis, SOB with excertion, pleuritic pain, sputum, wheezing, other Cardiovascular: denies: chest pain, palpitations, orthopnea, paroxysmal noc. dyspnea, edema, light headedness, other Gastrointestinal: denies: nausea, vomiting, abdominal pain, diarrhea, constipation, melena, hematochezia, other - Medication Medications: Active Medications Generic Name Dose Route Start Last Admin Trade Name Freq PRN Reason Stop Dose Admin Albuterol/Ipratropium 3 ml 10/11/19 18:30 10/14/19 09:35 Duoneb NEB 3 ml [id number] KATHIE Administration Aspirin 81 mg 10/13/19 09:00 10/14/19 09:55 Ecotrin PO 81 mg DAILY KATHIE Administration Atorvastatin Calcium 10 mg 10/12/19 21:00 10/13/19 21:12 Lipitor PO 10 mg HS KATHIE Administration Benzonatate 100 mg 10/14/19 06:28 10/14/19 06:40 Tessalon PO 10/15/19 06:29 100 mg TID PRN Administration Cough Cholecalciferol 5,000 units 10/13/19 09:00 10/14/19 09:56 Vitamin D3 PO 5,000 units DAILY KATHIE Administration Cyanocobalamin 1,000 mcg 10/13/19 09:00 10/14/19 09:56 Vitamin B-12 PO 1,000 mcg DAILY KATHIE Administration Enoxaparin Sodium 40 mg 10/12/19 09:00 10/14/19 10:03 Lovenox SC 40 mg 0900 KATHIE Administration Famotidine 20 mg 10/11/19 21:00 10/14/19 09:56 Pepcid PO 20 mg BID KATHIE Administration Finasteride 5 mg 10/13/19 09:00 10/14/19 09:56 Proscar PO 5 mg DAILY KATHIE Administration Guaifenesin 600 mg 10/14/19 09:00 10/14/19 09:56 Mucinex PO 600 mg Q12HR KATHIE Administration Guaifenesin 200 mg 10/14/19 04:11 10/14/19 04:36 Robitussin Sf PO 200 mg Q4H PRN Administration Cough Memantine 10 mg 10/12/19 21:00 10/14/19 09:56 Namenda PO 10 mg BID KATHIE Administration Paroxetine HCl 40 mg 10/13/19 09:00 10/14/19 09:56 Paxil PO 40 mg DAILY KATHIE Administration Potassium Chloride 10 meq 10/13/19 09:00 10/14/19 09:56 Klor-Con 10 PO 10 meq DAILY KATHIE Administration Tamsulosin HCl 0.8 mg 10/13/19 09:00 10/14/19 09:55 Flomax PO 0.8 mg DAILY KATHIE Administration Throat Lozenges 1 andrea 10/14/19 04:10 10/14/19 04:36 Cepastat Lozenges PO 1 andrea Q2H PRN Administration Cough - Exam General - other findings: Alert to person, not place or time ENT: normocephalic atraumatic Neck: supple, no JVD Heart: RRR, no murmur, no gallops, no rubs Respiratory: CTAB, no wheezes, no rales Gastrointestinal: soft, non-tender Gastrointestinal - other findings: protuberant abdomen Skin: no lesions Neurological: normal sensation to touch, no weakness Musculoskeletal: normal strength Psychiatric: A&O x 3, oriented to person Hosp A/P (1) Pneumonia Code(s): J18.9 - PNEUMONIA, UNSPECIFIED ORGANISM Status: Acute (2) Acute on chronic diastolic (congestive) heart failure Code(s): I50.33 - ACUTE ON CHRONIC DIASTOLIC (CONGESTIVE) HEART FAILURE Status : Acute (3) Obesity Code(s): E66.9 - OBESITY, UNSPECIFIED Status: Chronic (4) Hypertension Code(s): I10 - ESSENTIAL (PRIMARY) HYPERTENSION Status: Chronic (5) BPH (benign prostatic hyperplasia) Code(s): N40.0 - BENIGN PROSTATIC HYPERPLASIA WITHOUT LOWER URINRY TRACT SYMP Status: Acute (6) Dementia Code(s): F03.90 - UNSPECIFIED DEMENTIA WITHOUT BEHAVIORAL DISTURBANCE Status: Chronic - Plan Echo report reviewed from beginning of this month, he appears to have diasolitc dysfunction, which is a possible cause of his overload Continue PO lasix for now PFT or sleep study cannot be done inpatient, pulm [facility] state poor candidate given his advanced age and dementia, may have early fibrosis Continue treatment for community acquired pneumonia, Cefdinir and Azithromycin Continue his medication for hypertension, dementia, and BPH from home Wears oxygen at home DVT prophylaxis: Lovenox Disposition: Could have been discharged today from my standpoint, but assisted living facility will not accept him back. He is on oxygen and able to take diuretics and abx PO now. Will plan for nursing care, like terminologist given the fact that his nursing care needs may be more than can be handled at the assisted living facility. SW to discuss with family about SNF care.
[2019-10-14] MEDS ORDERED: Azithromycin 250 MG TAB PO SCH (11:30)
[2019-10-14] MEDS: Cefdinir 300 MG CAP PO SCH (20:54)
[2019-10-14] MEDS: Atorvastatin Calcium 10 MG TAB PO SCH (20:54)
[2019-10-15] MEDS: Azithromycin 250 MG TAB PO SCH (09:01)
[2019-10-15] MEDS: Aspirin 81 mg Enteric Coated Tablet PO SCH (09:01)
[2019-10-15] MEDS: Famotidine 20 MG TAB PO SCH ×2 (09:01→19:54)
[2019-10-15] MEDS: Enoxaparin Sodium 40 MG/0.4 ML SYRINGE SC SCH (09:01)
[2019-10-15] MEDS: Potassium Chloride 10 MEQ TAB PO SCH (09:01)
[2019-10-15] MEDS: PARoxetine 20 MG TAB PO SCH (09:02)
[2019-10-15] MEDS: Finasteride 5 MG TAB PO SCH (09:02)
[2019-10-15] MEDS: guaiFENesin ER 600 MG TAB PO SCH ×2 (09:02→19:55)
[2019-10-15] MEDS: Tamsulosin HCl 0.4 MG CAP PO SCH (09:02)
[2019-10-15] MEDS: Cefdinir 300 MG CAP PO SCH ×2 (09:02→19:55)
[2019-10-15] MEDS: Cyanocobalamin (Vitamin B-12) 1,000 MCG TAB PO SCH (09:02)
[2019-10-15] MEDS: Furosemide 40 MG TAB PO SCH (09:02)
--- NOTE | 2019-10-15 13:08 | PDOC.HOSPP ---
- Subjective Encounter Date: 10/15/19 Encounter Time: 09:15 Subjective: is sitting in chair, no sob or palp has ambulated 170ft with rw - Objective Vital Signs & Weight: Vital Signs (12 hours) Temp Pulse Resp BP BP Pulse Ox 10/15/19 12:00 98.4 F 71 20 131/76 96 10/15/19 10:58 74 16 98 10/15/19 07:51 97.6 F 73 14 138/81 95 10/15/19 06:35 72 16 96 10/15/19 03:26 97.9 F 68 28 H 132/80 97 Weight Weight 275 lb I&O: 10/14/19 10/15/19 10/16/19 06:59 06:59 06:59 Intake Total 1720 1440 Balance 1720 1440 Result Diagrams: 10/14/19 05:25 10/14/19 05:25 Hospitalist ROS - Medication Medications: Active Medications Generic Name Dose Route Start Last Admin Trade Name Freq PRN Reason Stop Dose Admin Albuterol/Ipratropium 3 ml 10/11/19 18:30 10/15/19 10:58 Duoneb NEB 3 ml [id number] KATHIE Administration Aspirin 81 mg 10/13/19 09:00 10/15/19 09:01 Ecotrin PO 81 mg DAILY KATHIE Administration Atorvastatin Calcium 10 mg 10/12/19 21:00 10/14/19 20:54 Lipitor PO 10 mg HS KATHIE Administration Azithromycin 500 mg 10/15/19 09:00 10/15/19 09:01 Zithromax PO 10/18/19 09:01 500 mg DAILY KATHIE Administration Cefdinir 300 mg 10/14/19 21:00 10/15/19 09:02 Omnicef PO 10/19/19 09:01 300 mg BID KATHIE Administration Cholecalciferol 5,000 units 10/13/19 09:00 10/15/19 09:01 Vitamin D3 PO 5,000 units DAILY KATHIE Administration Cyanocobalamin 1,000 mcg 10/13/19 09:00 10/15/19 09:02 Vitamin B-12 PO 1,000 mcg DAILY KATHIE Administration Enoxaparin Sodium 40 mg 10/12/19 09:00 10/15/19 09:01 Lovenox SC 40 mg 0900 KATHIE Administration Famotidine 20 mg 10/11/19 21:00 10/15/19 09:01 Pepcid PO 20 mg BID KATHIE Administration Finasteride 5 mg 10/13/19 09:00 10/15/19 09:02 Proscar PO 5 mg DAILY KATHIE Administration Furosemide 40 mg 10/15/19 09:00 10/15/19 09:02 Lasix PO 40 mg DAILY KATHIE Administration Guaifenesin 600 mg 10/14/19 09:00 10/15/19 09:02 Mucinex PO 600 mg Q12HR KATHIE Administration Guaifenesin 200 mg 10/14/19 04:11 10/14/19 04:36 Robitussin Sf PO 200 mg Q4H PRN Administration Cough Memantine 10 mg 10/12/19 21:00 10/15/19 09:02 Namenda PO 10 mg BID KATHIE Administration Paroxetine HCl 40 mg 10/13/19 09:00 10/15/19 09:02 Paxil PO 40 mg DAILY KATHIE Administration Potassium Chloride 10 meq 10/13/19 09:00 10/15/19 09:01 Klor-Con 10 PO 10 meq DAILY KATHIE Administration Tamsulosin HCl 0.8 mg 10/13/19 09:00 10/15/19 09:02 Flomax PO 0.8 mg DAILY KATHIE Administration Throat Lozenges 1 andrea 10/14/19 04:10 10/14/19 04:36 Cepastat Lozenges PO 1 andrea Q2H PRN Administration Cough - Exam General Appearance: NAD, awake alert Eye: PERRL, anicteric sclera ENT: no oropharyngeal lesions, moist mucosa Neck: supple, no JVD Heart: RRR, no gallops Respiratory: no wheezes, rhonchi Gastrointestinal: soft, non-tender, non-distended, normal bowel sounds Extremities: no cyanosis, 1+ LE edema Neurological: cranial nerve grossly intact, no new deficit Psychiatric: normal affect, A&O x 3 Hosp A/P (1) Pneumonia Code(s): J18.9 - PNEUMONIA, UNSPECIFIED ORGANISM Status: Acute Qualifiers: Pneumonia type: due to unspecified organism (2) BPH (benign prostatic hyperplasia) Code(s): N40.0 - BENIGN PROSTATIC HYPERPLASIA WITHOUT LOWER URINRY TRACT SYMP Status: Chronic (3) Obesity Code(s): E66.9 - OBESITY, UNSPECIFIED Status: Chronic Qualifiers: Obesity classification: adult class 2 (BMI 35 - 39.9) (4) Generalized weakness Code(s): R53.1 - WEAKNESS Status: Acute (5) Dementia Code(s): F03.90 - UNSPECIFIED DEMENTIA WITHOUT BEHAVIORAL DISTURBANCE Status: Chronic Qualifiers: Dementia type: unspecified type (6) Diabetes mellitus Code(s): E11.9 - TYPE 2 DIABETES MELLITUS WITHOUT COMPLICATIONS Status: Chronic Qualifiers: Diabetes mellitus type: type 2 Diabetes mellitus rat exterminator insulin use: without rat exterminator use (7) Hypertension Code(s): I10 - ESSENTIAL (PRIMARY) HYPERTENSION Status: Chronic Qualifiers: Hypertension type: essential hypertension Qualified Code(s): I10 - Essential (primary) hypertension (8) Hypothyroid Code(s): E03.9 - HYPOTHYROIDISM, UNSPECIFIED Status: Chronic Qualifiers: Hypothyroidism type: unspecified Qualified Code(s): E03.9 - Hypothyroidism , unspecified - Plan is on zithromax and omnicef nebs, nasal oxygen 2lts continue asp, lipitor, lasix, proscar, flomax and paxil medically stable for dc anytime placement is ready
[2019-10-15] MEDS: Atorvastatin Calcium 10 MG TAB PO SCH (19:55)
[2019-10-16] MEDS: Diabetic Tussin 200 MG/10 ML UDCUP PO PRN (04:37)
[2019-10-16] MEDS: Cepastat Lozenges 1 LOZ PO PRN (04:37)
[2019-10-16] MEDS: Finasteride 5 MG TAB PO SCH (07:37)
[2019-10-16] MEDS: Furosemide 40 MG TAB PO SCH (07:38)
[2019-10-16] MEDS: Cefdinir 300 MG CAP PO SCH ×2 (07:38→20:22)
[2019-10-16] MEDS: guaiFENesin ER 600 MG TAB PO SCH ×2 (07:38→20:22)
[2019-10-16] MEDS: Famotidine 20 MG TAB PO SCH ×2 (07:38→20:22)
[2019-10-16] MEDS: Aspirin 81 mg Enteric Coated Tablet PO SCH (07:38)
[2019-10-16] MEDS: PARoxetine 20 MG TAB PO SCH (07:39)
[2019-10-16] MEDS: Azithromycin 250 MG TAB PO SCH (07:39)
[2019-10-16] MEDS: Cyanocobalamin (Vitamin B-12) 1,000 MCG TAB PO SCH (07:40)
[2019-10-16] MEDS: Potassium Chloride 10 MEQ TAB PO SCH (07:40)
[2019-10-16] MEDS: Enoxaparin Sodium 40 MG/0.4 ML SYRINGE SC SCH (07:40)
[2019-10-16] MEDS: Tamsulosin HCl 0.4 MG CAP PO SCH (07:41)
--- NOTE | 2019-10-16 17:16 | PDOC.HOSPP ---
- Subjective Encounter Date: 10/16/19 Encounter Time: 09:30 Subjective: is sitting in chair, no sob or chest pain - Objective Vital Signs & Weight: Vital Signs (12 hours) Temp Pulse Resp BP Pulse Ox 10/16/19 15:50 98.7 F 75 18 165/79 H 94 L 10/16/19 15:08 84 16 96 10/16/19 10:57 98.5 F 84 18 147/74 H 96 10/16/19 10:35 83 16 93 L 10/16/19 07:53 98.4 F 87 20 159/79 H 94 L 10/16/19 07:47 94 L 10/16/19 07:38 88 16 94 L Weight Weight 275 lb I&O: 10/15/19 10/16/19 10/17/19 06:59 06:59 06:59 Intake Total 1440 1260 800 Balance 1440 1260 800 Result Diagrams: 10/14/19 05:25 10/14/19 05:25 Hospitalist ROS - Medication Medications: Active Medications Generic Name Dose Route Start Last Admin Trade Name Shirley PRN Reason Stop Dose Admin Albuterol/Ipratropium 3 ml 10/11/19 18:30 10/16/19 15:08 Duoneb NEB 3 ml [id number] KATHIE Administration Aspirin 81 mg 10/13/19 09:00 10/16/19 07:38 Ecotrin PO 81 mg DAILY KATHIE Administration Atorvastatin Calcium 10 mg 10/12/19 21:00 10/15/19 19:55 Lipitor PO 10 mg HS KATHIE Administration Azithromycin 500 mg 10/15/19 09:00 10/16/19 07:39 Zithromax PO 10/18/19 09:01 500 mg DAILY KATHIE Administration Cefdinir 300 mg 10/14/19 21:00 10/16/19 07:38 Omnicef PO 10/19/19 09:01 300 mg BID KATHIE Administration Cholecalciferol 5,000 units 10/13/19 09:00 10/16/19 07:37 Vitamin D3 PO 5,000 units DAILY KATHIE Administration Cyanocobalamin 1,000 mcg 10/13/19 09:00 10/16/19 07:40 Vitamin B-12 PO 1,000 mcg DAILY KATHIE Administration Enoxaparin Sodium 40 mg 10/12/19 09:00 10/16/19 07:40 Lovenox SC 40 mg 0900 KATHIE Administration Famotidine 20 mg 10/11/19 21:00 10/16/19 07:38 Pepcid PO 20 mg BID KATHIE Administration Finasteride 5 mg 10/13/19 09:00 10/16/19 07:37 Proscar PO 5 mg DAILY KATHIE Administration Furosemide 40 mg 10/15/19 09:00 10/16/19 07:38 Lasix PO 40 mg DAILY KATHIE Administration Guaifenesin 600 mg 10/14/19 09:00 10/16/19 07:38 Mucinex PO 600 mg Q12HR KATHIE Administration Guaifenesin 200 mg 10/14/19 04:11 10/16/19 04:37 Robitussin Sf PO 200 mg Q4H PRN Administration Cough Memantine 10 mg 10/12/19 21:00 10/16/19 07:40 Namenda PO 10 mg BID KATHIE Administration Paroxetine HCl 40 mg 10/13/19 09:00 10/16/19 07:39 Paxil PO 40 mg DAILY KATHIE Administration Potassium Chloride 10 meq 10/13/19 09:00 10/16/19 07:40 Klor-Con 10 PO 10 meq DAILY KATHIE Administration Tamsulosin HCl 0.8 mg 10/13/19 09:00 10/16/19 07:41 Flomax PO 0.8 mg DAILY KATHIE Administration Throat Lozenges 1 andrea 10/14/19 04:10 10/16/19 04:37 Cepastat Lozenges PO 1 andrea Q2H PRN Administration Cough - Exam General Appearance: awake alert Eye: PERRL, anicteric sclera ENT: no oropharyngeal lesions, moist mucosa Neck: supple, no JVD Heart: RRR, no murmur Respiratory: no wheezes, no rales Gastrointestinal: soft, non-tender, non-distended, normal bowel sounds Extremities: no cyanosis, 1+ LE edema Neurological: cranial nerve grossly intact, no focal deficits Psychiatric: normal affect, A&O x 3 Hosp A/P (1) Pneumonia Code(s): J18.9 - PNEUMONIA, UNSPECIFIED ORGANISM Status: Acute Qualifiers: Pneumonia type: due to unspecified organism (2) BPH (benign prostatic hyperplasia) Code(s): N40.0 - BENIGN PROSTATIC HYPERPLASIA WITHOUT LOWER URINRY TRACT SYMP Status: Chronic (3) Obesity Code(s): E66.9 - OBESITY, UNSPECIFIED Status: Chronic Qualifiers: Obesity classification: adult class 2 (BMI 35 - 39.9) (4) Generalized weakness Code(s): R53.1 - WEAKNESS Status: Acute (5) Dementia Code(s): F03.90 - UNSPECIFIED DEMENTIA WITHOUT BEHAVIORAL DISTURBANCE Status: Chronic Qualifiers: Dementia type: unspecified type (6) Diabetes mellitus Code(s): E11.9 - TYPE 2 DIABETES MELLITUS WITHOUT COMPLICATIONS Status: Chronic Qualifiers: Diabetes mellitus type: type 2 Diabetes mellitus termite technician insulin use: without snf use (7) Hypertension Code(s): I10 - ESSENTIAL (PRIMARY) HYPERTENSION Status: Chronic Qualifiers: Hypertension type: essential hypertension Qualified Code(s): I10 - Essential (primary) hypertension (8) Hypothyroid Code(s): E03.9 - HYPOTHYROIDISM, UNSPECIFIED Status: Chronic Qualifiers: Hypothyroidism type: unspecified Qualified Code(s): E03.9 - Hypothyroidism , unspecified - Plan is on omnicef nebs, nasal oxygen 2lts continue asp, lipitor, lasix, proscar, flomax and paxil medically stable for dc anytime placement is ready May dc anytime to [facility] if accepted
[2019-10-16] MEDS: Atorvastatin Calcium 10 MG TAB PO SCH (20:22)
[2019-10-17 08:15] VITALS: BP 122/67; TEMP 98.9
[2019-10-17] MEDS: Famotidine 20 MG TAB PO SCH (10:18)
[2019-10-17] MEDS: guaiFENesin ER 600 MG TAB PO SCH (10:19)
[2019-10-17] MEDS: PARoxetine 20 MG TAB PO SCH (10:19)
[2019-10-17] MEDS: Cefdinir 300 MG CAP PO SCH (10:19)
[2019-10-17] MEDS: Furosemide 40 MG TAB PO SCH (10:19)
[2019-10-17] MEDS: Cyanocobalamin (Vitamin B-12) 1,000 MCG TAB PO SCH (10:19)
[2019-10-17] MEDS: Potassium Chloride 10 MEQ TAB PO SCH (10:20)
[2019-10-17] MEDS: Tamsulosin HCl 0.4 MG CAP PO SCH (10:20)
[2019-10-17] MEDS: Aspirin 81 mg Enteric Coated Tablet PO SCH (10:20)
[2019-10-17] MEDS: Finasteride 5 MG TAB PO SCH (10:20)
[2019-10-17] MEDS: Azithromycin 250 MG TAB PO SCH (10:20)
[2019-10-17] MEDS: Enoxaparin Sodium 40 MG/0.4 ML SYRINGE SC SCH (10:21)
--- NOTE | 2019-10-19 10:33 | DIS ---
DATE OF ADMISSION: 10/11/2019 DATE OF DISCHARGE: 10/17/2019 DISCHARGE DISPOSITION: To [facility]. PRIMARY DISCHARGE DIAGNOSES: Pneumonia. SECONDARY DISCHARGE DIAGNOSES: Generalized weakness, deconditioning, benign prostatic hypertrophy, obesity, dementia, diabetes mellitus type 2, hypertension , hypothyroidism, acute respiratory failure with hypoxia due to pneumonia. PROCEDURES DONE DURING HOSPITALIZATION: CT angio chest done on 10/12/2019 showed no evidence of PE. There was 7 mm peripheral left lung nodule in the left upper lobe. Influenza A and B antigens were negative. Urine culture grew mixed ashtyn less than 25,000 colony-forming units. Blood cultures 1 of 2 grew gram-positive justin, likely contaminant. White count of 8, H and H 11 and 37, platelet count is 192, MCV 102, BUN 25, creatinine 1.2, albumin 3.9. BNP 42. DISCHARGE MEDICATIONS: 1. Albuterol inhaler q.6 hourly p.r.n. 2. Aspirin 81 mg p.o. daily. 3. Coreg 3.125 mg p.o. twice daily. 4. Vitamin D3 5000 units p.o. daily. 5. Finasteride 5 mg p.o. daily. 6. Lasix 40 mg p.o. daily. 7. Galantamine extended release 16 mg p.o. daily. 8. Mucinex 400 mg twice daily. 9. Lisinopril 20 mg daily. 10. Namenda 10 mg p.o. twice daily. 11. [place]-3 fatty acids 1200 mg p.o. daily. 12. Paroxetine 40 mg p.o. daily. 13. Potassium chloride 10 mEq p.o. daily. 14. Simvastatin 20 mg p.o. daily. 15. Allopurinol 300 mg p.o. daily. 16. Omnicef 300 mg p.o. twice daily for another 6 days. 17. Vitamin B12 1000 mcg p.o. daily. 18. Vitamin B6 100 mg p.o. daily. 19. Flomax 0.8 mg p.o. daily. ALLERGIES: NO KNOWN DRUG ALLERGIES. DISCHARGE PLAN: The patient to follow up with his primary care physician, Dr. Colby Leiva on 11/03/2019 at 11:30 a.m. BRIEF COURSE DURING HOSPITALIZATION: The patient initially got admitted on the with complaints of shortness of breath and needing nearly 3 L of oxygen on arrival. He was found to have had pneumonia. He was placed on IV antibiotics along with nebulizations. The patient responded well to above measures. He has ambulated nearly 170 feet. He is back to 1L of nasal cannula with good saturations above 95% now. Likely, he will come out of nasal cannula oxygen in the next day or two at the care home. His discharge plan was delayed due to placement issues. He has finally been accepted to [facility] and will be shortly discharged . Please note I have seen and examined the patient on the day of discharge. A total of 35 minutes was spent on discharge plan. He is otherwise hemodynamically stable. The patient was also advised to continue incentive spirometry. Job ID: [id number] [facility]
== END 2019-10-17 11:07 ==
LOC: ERS 13:14 → SURG A 17:37 → INTOOBSV 17:37
PROVIDERS: ADMIT Internal Medicine; ATTEND Internal Medicine
DX: J18.9 Pneumonia, unspecified organism (principal); J96.01 Acute respiratory failure with hypoxia; R53.1 Weakness; I11.0 Hypertensive heart disease with heart failure; I50.33 Acute on chronic diastolic (congestive) heart failure; G30.9 Alzheimer's disease, unspecified; F02.80 Dementia in other diseases classified elsewhere, unspecified severity, without behavioral disturbance, psychotic disturbance, mood disturbance, and anxiety; E78.5 Hyperlipidemia, unspecified; M10.9 Gout, unspecified; E11.9 Type 2 diabetes mellitus without complications; R91.1 Solitary pulmonary nodule; N40.0 Benign prostatic hyperplasia without lower urinary tract symptoms; E66.9 Obesity, unspecified; Z68.37 Body mass index [BMI] 37.0-37.9, adult; Z66 Do not resuscitate; Z87.891 Personal history of nicotine dependence; Z79.82 Long term (current) use of aspirin; Z79.899 Other long term (current) drug therapy
CPT/HCPCS: 71045 ×3; 71275; 80048; 80053 ×2; 82330; 82435; 82803; 83880; 84132; 84145; 84295; 84484; 85014; 85025 ×3; 85379; 87040; 87086; 87804 ×2; 93005; 94640 ×8; 96361 ×2; 96372 ×6; 96374; 96375 ×2; 96376 ×4; 97116 ×3; 97139 ×6; 9739G ×2; 99285; G0378 ×8; 36415; 81003; 81015; J0696; J1650; J1940; J2920; J2930; J3490; J7620